=== PATIENT | female | born 1960 | race Caucasian/White ===

== ENCOUNTER 2021-08-17 20:33 | Inpatient (IN) | payer OTHER ==
[2021-08-17 21:29] LABS: #Eosinphils 0.1 thou/uL (0.0-0.7); #Lymphocytes 1.4 thou/uL (1.20-3.40); #Monocytes 0.5 thou/uL (0.11-0.59); #Neutrophils 4.6 thou/uL (1.40-6.50); %Basophils 0.2 % (0.0-1.0); %Eosinophils 0.8 % (0.0-10.0); %Lymphocytes 20.5 % (21.0-51.0); %Monocytes 8.2 % (0.0-10.0); %Neutrophils 70.3 % (42.0-75.0); Hemoglobin 12.9 g/dL (12.0-16.0); Mean Corpuscular HGB CONC 29.6 g/dL (32.0-36.0); Mean Corpuscular Hemoglobin 27.1 pg (27.0-31.0); Mean Corpuscular Volume 91.8 fL (78.0-98.0); Platelet Count 197 thou/uL (130-400); Red Blood Cell (RBC) Count 4.74 mill/uL (4.20-5.40); White Blood Cell (WBC) Count 6.6 thou/uL (4.8-10.8)
[2021-08-17 21:43] LABS: Bacteria/HPF None Seen HPF (None Seen); Bilirubin Negative (Negative); Blood, Urine Negative (Negative); Clarity Clear (Clear); Glucose, Urine (Dipstick) Normal (Negative); Ketone, Urine Negative (Negative); Leukocyte Negative Leu/uL (Negative); Nitrite Negative (Negative); Protein, Urine (Dipstick) 100 mg/dL (Neg-Trace); RBC/HPF 0-3 HPF (0-3); Specific Gravity, Urine 1.023 (1.002-1.036); Squamous Epithelial 0-3 HPF (0-3); Urobilinogen Normal mg/dL (Less than 2); WBC/HPF 0-3 HPF (0-3); pH, Urine 7.5 (5.0-9.0)
[2021-08-17 21:49] LABS: ALT (SGPT) 8 U/L (8-55); AST (SGOT) 13 U/L (5-34); Albumin 4.1 g/dL (3.5-5.0); Alkaline Phosphatase 90 U/L (40-110); Anion Gap 24 mmol/L (10-20); BUN (Urea Nitrogen) 13 mg/dL (9.8-20.1); Bilirubin, Total 1.6 mg/dL (0.2-1.2); Calc. Creatinine Clearance 0 mL/min (70-130); Calcium 9.9 mg/dL (7.8-10.44); Carbon Dioxide 20 mmol/L (22-29); Chloride 101 mmol/L (98-107); Globulin 3.5 g/dL (2.4-3.5); Glucose 215 mg/dL (70-105); Potassium 4.5 mmol/L (3.5-5.1); Protein, Total 7.6 g/dL (6.0-8.3); Sodium 140 mmol/L (136-145)
[2021-08-17] MEDS ORDERED: Azithromycin 500 MG VIAL ONE (22:09)
[2021-08-17 22:13] LABS: Actual Bicarbonate (HCO3a) 29.4 mEq/L (22-28); CO2 Tension 47.4 mmHg (35.0-45.0); Calcium, Ionized (arterial) 1.16 mmol/L (1.12-1.30); O2 Tension (PaO2), arterial 86.3 mmHg (80.0-100.0); Potassium - ABG Lab 4.27 mmol/L (3.70-5.30); pH, Arterial 7.41 (7.35-7.45)
[2021-08-17 22:27] LABS: SARS-CoV-2 NAA Rapid Test Not Detected (NotDetected)
[2021-08-17] MEDS ORDERED: Morphine 4 MG/ML VIAL ONE (22:34)
[2021-08-17] MEDS ORDERED: Ondansetron PF 4 MG/2 ML Vial ONE (22:37)
[2021-08-17] MEDS ORDERED: Acetaminophen 650 MG Suppository PR PRN (22:38)
[2021-08-17] MEDS ORDERED: Dextrose 5% in Water 1,000 ML IV PRN (22:38)
[2021-08-17] MEDS ORDERED: Dextrose 50% Abboject 50 ML SYRINGE SLOW IVP PRN (22:38)
[2021-08-17] MEDS ORDERED: Furosemide 40 MG/4 ML VIAL SLOW IVP SCH (23:30)
[2021-08-18] MEDS: Nystatin Powder 15 GM BOT TOP PRN (01:21)
[2021-08-18] MEDS ORDERED: Morphine 4 MG/ML VIAL SLOW IVP SCH (01:30)
[2021-08-18 01:37] LABS: Lactic Acid 2.9 mmol/L (0.5-2.2)
[2021-08-18] MEDS ORDERED: tiZANidine HCl 4 MG TAB PO SCH ×2 (02:00→18:30)
[2021-08-18] MEDS ORDERED: Benzonatate 100 MG CAP PO PRN (02:13)
[2021-08-18] MEDS ORDERED: Ondansetron ODT 4 MG TAB PO PRN (02:17)
[2021-08-18] MEDS ORDERED: Albuterol Sulfate 2.5 mg/3 ml Neb NEB PRN (02:51)
[2021-08-18] MEDS ORDERED: Docusate 100 MG CAP PO PRN (02:51)
[2021-08-18] MEDS ORDERED: Non-Formulary Item 1 EACH (Albuterol Sulfate [Ventolin Hfa] 8 GM Hfa.Aer.Ad) INH PRN (02:51)
[2021-08-18] MEDS ORDERED: Promethazine 25 MG TAB PO PRN (02:58)
[2021-08-18 04:03] LABS: Band 3 % (5-11); Hemoglobin 11.4 g/dL (12.0-16.0); Hypochromia SLIGHT = 6-15 cells (100X) (0-5/hpf); Lymphocytes 17 % (21-51); MDiff Complete? YES; Mean Corpuscular Hemoglobin 27.8 pg (27.0-31.0); Mean Platelet Volume 9.1 fL (7.4-10.4); Monocytes 8 % (0-10); Neutrophil 72 % (42-75); Platelet Count 168 thou/uL (130-400); Platelet Morphology Comment Appears Adequate; White Blood Cell (WBC) Count 5.2 thou/uL (4.8-10.8)
[2021-08-18 04:18] LABS: ALT (SGPT) 9 U/L (8-55); AST (SGOT) 14 U/L (5-34); Albumin 3.4 g/dL (3.5-5.0); Alkaline Phosphatase 71 U/L (40-110); Anion Gap 15 mmol/L (10-20); BUN (Urea Nitrogen) 13 mg/dL (9.8-20.1); Bilirubin, Total 1.1 mg/dL (0.2-1.2); Calc. Creatinine Clearance 161 mL/min (70-130); Calcium 9.2 mg/dL (7.8-10.44); Carbon Dioxide 26 mmol/L (22-29); Chloride 102 mmol/L (98-107); Globulin 3.2 g/dL (2.4-3.5); Glucose 266 mg/dL (70-105); Potassium 4.4 mmol/L (3.5-5.1); Protein, Total 6.6 g/dL (6.0-8.3); Sodium 139 mmol/L (136-145)
[2021-08-18] MEDS: HumaLOG 300 UNITS/3 ML VIAL SC PRN ×3 (06:36→20:33)
[2021-08-18] MEDS: Arformoterol 15 MCG/2 ML NEB NEB SCH ×2 (08:34→19:09)
[2021-08-18] MEDS: Aripiprazole 10 MG TAB PO SCH (08:50)
[2021-08-18] MEDS: Fluticasone Propionate Nasal Spray 16 gm Bottle NASAL SCH (08:50)
[2021-08-18] MEDS: Ascorbic Acid 500 mg Chewable Tablet PO SCH (08:51)
[2021-08-18] MEDS: Ergocalciferol 1.25 MG(50,000 UNITS) CAP PO SCH (08:51)
[2021-08-18] MEDS: Loratadine 10 MG TAB PO SCH (08:51)
[2021-08-18] MEDS ORDERED: Torsemide 20 MG TAB PO SCH (09:00)
[2021-08-18] MEDS ORDERED: Digoxin 0.125 MG TAB PO SCH (09:00)
[2021-08-18] MEDS ORDERED: Enoxaparin Sodium 100 MG/ML SYRINGE SC SCH (09:00)
[2021-08-18] MEDS ORDERED: Loratadine 10 MG TAB PO SCH (09:00)
[2021-08-18] MEDS ORDERED: Betamethasone 0.1% Cream 15 GM TUBE TOP SCH (09:00)
[2021-08-18] MEDS ORDERED: Lantus 1000 UNITS/10 ML VIAL SC SCH (09:15)
[2021-08-18] MEDS: Mag-Al Plus 1200 MG/1200 MG/120 MG/30 ML UDCUP PO PRN ×2 (09:25→17:33)
[2021-08-18] MEDS: tiZANidine HCl 4 MG TAB PO PRN ×2 (09:25→17:37)
[2021-08-18] MEDS: Furosemide 40 MG/4 ML VIAL SLOW IVP SCH ×3 (09:26→20:33)
[2021-08-18] MEDS ORDERED: Betamethasone 0.1% Cream 15 GM TUBE TOP PRN (13:41)
[2021-08-18 14:11] LABS: Legionella Urinary Ag Negative (Negative)
[2021-08-18] MEDS: Acetaminophen 325 MG TAB PO PRN (18:12)
[2021-08-18] MEDS: Atorvastatin Calcium 20 MG TAB PO SCH (20:33)
[2021-08-19] MEDS: tiZANidine HCl 4 MG TAB PO PRN ×4 (01:21→23:32)
[2021-08-19 02:30] LABS: Actual Bicarbonate (HCO3a) 35.8 mEq/L (22-28); Base Excess (BEa) 8.4 mEq/L (-2.0 to +3.0); Calcium, Ionized (arterial) 1.16 mmol/L (1.12-1.30); Carboxyhemoglobin (COHb) 0.8 gm% (0.0-3.0); Hemoglobin (Hb) 11.7 g/dL (12.0-16.0); O2 Tension (PaO2), arterial 84.8 mmHg (80.0-100.0); pH, Arterial 7.36 (7.35-7.45)
[2021-08-19 02:33] LABS: CO2 Tension 64.2 mmHg (35.0-45.0); Puncture Site RRA
[2021-08-19] MEDS ORDERED: DOBUTamine 500 mg/250 ml 250 ML IVPB SCH (03:00)
[2021-08-19 03:52] LABS: Anion Gap 10 mmol/L (10-20); Anion Gap 11 mmol/L (10-20); BUN (Urea Nitrogen) 17 mg/dL (9.8-20.1); Calc. Creatinine Clearance 140 mL/min (70-130); Calc. Creatinine Clearance 142 mL/min (70-130); Calcium 8.8 mg/dL (7.8-10.44); Calcium 8.9 mg/dL (7.8-10.44); Carbon Dioxide 31 mmol/L (22-29); Carbon Dioxide 33 mmol/L (22-29); Chloride 94 mmol/L (98-107); Chloride 95 mmol/L (98-107); Glucose 315 mg/dL (70-105); Glucose 318 mg/dL (70-105); Magnesium 1.5 mg/dL (1.6-2.6); Phosphorus 3.5 mg/dL (2.3-4.7); Potassium 4.2 mmol/L (3.5-5.1); Sodium 132 mmol/L (136-145); Sodium 134 mmol/L (136-145)
[2021-08-19 04:38] LABS: Digoxin Less than 0.15 ng/mL (0.8-2.0)
[2021-08-19] MEDS: HumaLOG 300 UNITS/3 ML VIAL SC PRN ×4 (06:16→23:30)
[2021-08-19 06:56] LABS: Magnesium 1.5 mg/dL (1.6-2.6)
[2021-08-19] MEDS: Arformoterol 15 MCG/2 ML NEB NEB SCH ×2 (08:08→19:11)
[2021-08-19] MEDS: Acetaminophen 325 MG TAB PO PRN (08:59)
[2021-08-19] MEDS: Loratadine 10 MG TAB PO SCH (08:59)
[2021-08-19] MEDS: Ascorbic Acid 500 mg Chewable Tablet PO SCH (08:59)
[2021-08-19] MEDS: Aripiprazole 10 MG TAB PO SCH (08:59)
[2021-08-19] MEDS ORDERED: Apixaban 5 MG TAB PO SCH (09:00)
[2021-08-19] MEDS: Furosemide 40 MG/4 ML VIAL SLOW IVP SCH ×3 (09:00→20:13)
[2021-08-19] MEDS ORDERED: Lantus 1000 UNITS/10 ML VIAL SC SCH (09:00)
[2021-08-19] MEDS: Fluticasone Propionate Nasal Spray 16 gm Bottle NASAL SCH (09:00)
[2021-08-19] MEDS: Magnesium 2 GM/50 ML 2 GM in Premix Bag 1 BAG IVPB SCH ×3 (09:48→13:03)
[2021-08-19] MEDS ORDERED: HumaLOG 300 UNITS/3 ML VIAL SC PRN (09:53)
[2021-08-19] MEDS: HumaLOG 300 UNITS/3 ML VIAL SC SCH ×2 (12:05→16:34)
[2021-08-19] MEDS ORDERED: Ketorolac Tromethamine 30 MG/ML VIAL IVP SCH (13:45)
[2021-08-19] MEDS: Atorvastatin Calcium 20 MG TAB PO SCH (20:12)
[2021-08-20] MEDS: Acetaminophen 325 MG TAB PO PRN ×3 (02:30→18:32)
[2021-08-20 04:59] LABS: Anion Gap 14 mmol/L (10-20); BUN (Urea Nitrogen) 21 mg/dL (9.8-20.1); Calc. Creatinine Clearance 150 mL/min (70-130); Calcium 8.6 mg/dL (7.8-10.44); Carbon Dioxide 33 mmol/L (22-29); Chloride 93 mmol/L (98-107); Glucose 222 mg/dL (70-105); Potassium 4.6 mmol/L (3.5-5.1); Sodium 135 mmol/L (136-145)
[2021-08-20] MEDS: tiZANidine HCl 4 MG TAB PO PRN ×3 (06:06→20:10)
[2021-08-20] MEDS: HumaLOG 300 UNITS/3 ML VIAL SC PRN ×3 (06:07→16:30)
[2021-08-20] MEDS: Arformoterol 15 MCG/2 ML NEB NEB SCH ×2 (07:34→19:05)
[2021-08-20] MEDS: HumaLOG 300 UNITS/3 ML VIAL SC SCH (08:33)
[2021-08-20] MEDS ORDERED: Lantus 1000 UNITS/10 ML VIAL SC SCH (09:00)
[2021-08-20] MEDS: Fluticasone Propionate Nasal Spray 16 gm Bottle NASAL SCH (09:51)
[2021-08-20] MEDS: Aripiprazole 10 MG TAB PO SCH (09:56)
[2021-08-20] MEDS: Ascorbic Acid 500 mg Chewable Tablet PO SCH (09:56)
[2021-08-20] MEDS: Loratadine 10 MG TAB PO SCH (09:56)
[2021-08-20] MEDS: Furosemide 40 MG/4 ML VIAL SLOW IVP SCH ×3 (09:56→20:11)
[2021-08-20] MEDS: Ondansetron ODT 4 MG TAB PO PRN (11:38)
[2021-08-20 15:54] LABS: ANA Symphony (Qualitative) Negative (Negative); ANA Symphony (Quantitative) 0.4 Ratio (< 0.7 Negative)
[2021-08-20] MEDS: Atorvastatin Calcium 20 MG TAB PO SCH (20:11)
[2021-08-21 05:09] LABS: Anion Gap 15 mmol/L (10-20); BUN (Urea Nitrogen) 25 mg/dL (9.8-20.1); Calc. Creatinine Clearance 151 mL/min (70-130); Calcium 8.2 mg/dL (7.8-10.44); Carbon Dioxide 31 mmol/L (22-29); Chloride 93 mmol/L (98-107); Glucose 205 mg/dL (70-105); Magnesium 1.8 mg/dL (1.6-2.6); Sodium 135 mmol/L (136-145)
[2021-08-21 05:22] LABS: #Eosinphils 0.1 thou/uL (0.0-0.7); #Lymphocytes 0.6 thou/uL (1.20-3.40); #Monocytes 0.3 thou/uL (0.11-0.59); %Basophils 0.3 % (0.0-1.0); %Eosinophils 1.7 % (0.0-10.0); %Lymphocytes 14.3 % (21.0-51.0); %Monocytes 8.3 % (0.0-10.0); %Neutrophils 75.5 % (42.0-75.0); Hemoglobin 11.7 g/dL (12.0-16.0); Mean Corpuscular HGB CONC 29.9 g/dL (32.0-36.0); Mean Corpuscular Hemoglobin 27.2 pg (27.0-31.0); Mean Corpuscular Volume 90.8 fL (78.0-98.0); Mean Platelet Volume 9.4 fL (7.4-10.4); Platelet Count 131 thou/uL (130-400); RBC Distribution Width 14.1 % (11.5-14.5); Red Blood Cell (RBC) Count 4.29 mill/uL (4.20-5.40); White Blood Cell (WBC) Count 3.9 thou/uL (4.8-10.8)
[2021-08-21] MEDS: tiZANidine HCl 4 MG TAB PO PRN ×3 (05:28→21:44)
[2021-08-21] MEDS: Nystatin Powder 15 GM BOT TOP PRN (05:31)
[2021-08-21] MEDS: Arformoterol 15 MCG/2 ML NEB NEB SCH ×2 (08:04→18:41)
[2021-08-21] MEDS ORDERED: DOBUTamine 500 mg/250 ml 250 ML IVPB SCH (08:30)
[2021-08-21] MEDS ORDERED: Prevnar 13-Val Conj/PF 0.5 ML SYRINGE IM ONE (09:00)
[2021-08-21] MEDS ORDERED: Magnesium 2 GM/50 ML 2 GM in Premix Bag 1 BAG IVPB SCH (09:00)
[2021-08-21] MEDS ORDERED: FLU VACC QS2021-22(6MOS UP)/PF 60 MCG/0.5 ML SYRINGE IM ONE (09:00)
[2021-08-21] MEDS ORDERED: Lantus 1000 UNITS/10 ML VIAL SC SCH ×2 (09:00)
[2021-08-21] MEDS: Magnesium 2 GM/50 ML 2 GM in Premix Bag 1 BAG IVPB SCH ×2 (09:10→11:06)
[2021-08-21] MEDS: Ascorbic Acid 500 mg Chewable Tablet PO SCH (09:48)
[2021-08-21] MEDS: Aripiprazole 10 MG TAB PO SCH (09:48)
[2021-08-21] MEDS: Furosemide 40 MG/4 ML VIAL SLOW IVP SCH ×3 (09:49→21:02)
[2021-08-21] MEDS: Loratadine 10 MG TAB PO SCH (09:49)
[2021-08-21] MEDS: Fluticasone Propionate Nasal Spray 16 gm Bottle NASAL SCH (09:49)
[2021-08-21] MEDS ORDERED: HumaLOG 300 UNITS/3 ML VIAL SC SCH (17:00)
[2021-08-21] MEDS: Simethicone Chewable 80 MG TAB PO PRN (18:50)
[2021-08-21] MEDS: VANCOMYCIN 2 GRAM/400 ML BAG 2 GM in Premix Bag 1 BAG IVPB SCH (18:51)
[2021-08-21] MEDS: Atorvastatin Calcium 20 MG TAB PO SCH (21:02)
[2021-08-21] MEDS: Acetaminophen 325 MG TAB PO PRN (22:52)
[2021-08-21] MEDS ORDERED: Aripiprazole 10 MG TAB PO SCH (23:30)
[2021-08-22 03:56] LABS: Anion Gap 13 mmol/L (10-20); BUN (Urea Nitrogen) 27 mg/dL (9.8-20.1); Calc. Creatinine Clearance 141 mL/min (70-130); Calcium 8.6 mg/dL (7.8-10.44); Carbon Dioxide 32 mmol/L (22-29); Chloride 93 mmol/L (98-107); Glucose 208 mg/dL (70-105); Magnesium 1.7 mg/dL (1.6-2.6); Potassium 4.2 mmol/L (3.5-5.1); Sodium 134 mmol/L (136-145)
[2021-08-22] MEDS: tiZANidine HCl 4 MG TAB PO PRN ×3 (05:56→17:59)
[2021-08-22] MEDS: VANCOMYCIN 2 GRAM/400 ML BAG 2 GM in Premix Bag 1 BAG IVPB SCH ×2 (05:57→17:23)
[2021-08-22] MEDS: HumaLOG 300 UNITS/3 ML VIAL SC PRN ×3 (06:10→17:21)
[2021-08-22] MEDS ORDERED: Magnesium Sulfate 2 GM in Sodium Chloride 0.9% 100 ML IVPB SCH (06:30)
[2021-08-22] MEDS ORDERED: Magnesium 2 GM/50 ML 2 GM in Premix Bag 1 BAG IVPB SCH (07:00)
[2021-08-22] MEDS: Arformoterol 15 MCG/2 ML NEB NEB SCH ×2 (08:24→19:07)
[2021-08-22] MEDS ORDERED: Enoxaparin Sodium 100 MG/ML SYRINGE SC SCH (09:00)
[2021-08-22] MEDS ORDERED: tiZANidine HCl 4 MG TAB PO SCH (09:00)
[2021-08-22] MEDS: HumaLOG 300 UNITS/3 ML VIAL SC SCH ×3 (09:15→17:20)
[2021-08-22] MEDS: Lantus 1000 UNITS/10 ML VIAL SC SCH (09:16)
[2021-08-22] MEDS: Furosemide 40 MG/4 ML VIAL SLOW IVP SCH (09:17)
[2021-08-22] MEDS: Aripiprazole 10 MG TAB PO SCH (09:19)
[2021-08-22] MEDS: Ascorbic Acid 500 mg Chewable Tablet PO SCH (09:20)
[2021-08-22] MEDS: Loratadine 10 MG TAB PO SCH (09:20)
[2021-08-22] MEDS: Fluticasone Propionate Nasal Spray 16 gm Bottle NASAL SCH (09:20)
[2021-08-22] MEDS: Acetaminophen/Codeine 30-300mg Tablet PO PRN ×2 (11:12→23:52)
[2021-08-22 17:47] LABS: Vancomycin, Trough 22.2 ug/mL
[2021-08-22] MEDS: Ondansetron ODT 4 MG TAB PO PRN (17:59)
[2021-08-22] MEDS: Atorvastatin Calcium 20 MG TAB PO SCH (21:20)
[2021-08-22] MEDS ORDERED: hydrOXYzine 25 MG TAB PO PRN (21:42)
[2021-08-22] MEDS: Melatonin 3 MG TAB PO PRN (22:15)
[2021-08-23] MEDS: tiZANidine HCl 4 MG TAB PO PRN (03:30)
[2021-08-23 04:02] LABS: Anion Gap 16 mmol/L (10-20); BUN (Urea Nitrogen) 24 mg/dL (9.8-20.1); Calc. Creatinine Clearance 180 mL/min (70-130); Calcium 8.8 mg/dL (7.8-10.44); Carbon Dioxide 28 mmol/L (22-29); Chloride 96 mmol/L (98-107); Glucose 169 mg/dL (70-105); Potassium 3.9 mmol/L (3.5-5.1); Sodium 136 mmol/L (136-145)
[2021-08-23 04:27] LABS: Magnesium 1.8 mg/dL (1.6-2.6)
[2021-08-23] MEDS: Arformoterol 15 MCG/2 ML NEB NEB SCH ×2 (07:13→18:49)
[2021-08-23] MEDS: Vancomycin HCl 1.75 GM in Sodium Chloride 0.9% 500 ML IVPB SCH ×2 (07:18→17:03)
[2021-08-23] MEDS ORDERED: Magnesium 2 GM/50 ML 2 GM in Premix Bag 1 BAG IVPB SCH (08:30)
[2021-08-23] MEDS: Furosemide 40 MG/4 ML VIAL SLOW IVP SCH (08:38)
[2021-08-23] MEDS ORDERED: Lantus 1000 UNITS/10 ML VIAL SC SCH (09:00)
[2021-08-23] MEDS: Fluticasone Propionate Nasal Spray 16 gm Bottle NASAL SCH (10:51)
[2021-08-23] MEDS: Aripiprazole 10 MG TAB PO SCH (10:51)
[2021-08-23] MEDS: Ascorbic Acid 500 mg Chewable Tablet PO SCH (10:51)
[2021-08-23] MEDS: HumaLOG 300 UNITS/3 ML VIAL SC SCH ×3 (10:51→17:03)
[2021-08-23] MEDS: Loratadine 10 MG TAB PO SCH (10:52)
[2021-08-23] MEDS ORDERED: Fentanyl 250 MCG/5 ML VIAL ONE (13:29)
[2021-08-23] MEDS ORDERED: Dexamethasone 20 MG/5 ML VIAL ONE (13:48)
[2021-08-23] MEDS ORDERED: Esmolol 100 MG/10 ML VIAL ONE (13:48)
[2021-08-23] MEDS ORDERED: Ondansetron PF 4 MG/2 ML Vial ONE (13:48)
[2021-08-23] MEDS ORDERED: Succinylcholine 200 MG/10 ml SYRINGE FS ONE (13:48)
[2021-08-23] MEDS ORDERED: Atropine Sulfate 0.4 mg/1 ml Vial ONE (13:48)
[2021-08-23] MEDS ORDERED: ePHEDrine 50 MG/ML VIAL ONE (13:48)
[2021-08-23] MEDS ORDERED: Lidocaine 1% PF 5 ML VIAL ONE (13:48)
[2021-08-23] MEDS ORDERED: PHENYLEPHRINE-NS 100 MCG/ML 10 ML SYRINGE ONE (13:48)
[2021-08-23] MEDS ORDERED: PROPOFOL 200 MG/20 ML VIAL ONE (13:48)
[2021-08-23] MEDS ORDERED: Heparin 10,000 UNITS/ 10 ML VIAL ONE (14:20)
[2021-08-23] MEDS ORDERED: DOPamine 400 MG/D5W 250 ML 250 ML ONE (14:53)
[2021-08-23] MEDS: Acetaminophen/Codeine 30-300mg Tablet PO PRN (17:02)
[2021-08-23] MEDS ORDERED: Morphine 4 MG/ML VIAL SLOW IVP PRN ×3 (18:15→19:24)
[2021-08-23 20:24] LABS: #Monocytes 0.2 thou/uL (0.11-0.59); #Neutrophils 7.5 thou/uL (1.40-6.50); %Basophils 0.2 % (0.0-1.0); %Eosinophils 0.2 % (0.0-10.0); %Lymphocytes 11.1 % (21.0-51.0); %Monocytes 2.7 % (0.0-10.0); %Neutrophils 85.8 % (42.0-75.0); Hemoglobin 10.9 g/dL (12.0-16.0); Mean Corpuscular HGB CONC 29.5 g/dL (32.0-36.0); Mean Corpuscular Hemoglobin 26.9 pg (27.0-31.0); Mean Corpuscular Volume 91.2 fL (78.0-98.0); Mean Platelet Volume 9.3 fL (7.4-10.4); Platelet Count 177 thou/uL (130-400); RBC Distribution Width 13.9 % (11.5-14.5); Red Blood Cell (RBC) Count 4.07 mill/uL (4.20-5.40); White Blood Cell (WBC) Count 8.7 thou/uL (4.8-10.8)
[2021-08-23 21:08] LABS: Hypochromia SLIGHT = 6-15 cells (100X) (0-5/hpf); Lymphocytes 8 % (21-51); MDiff Complete? YES; Monocytes 6 % (0-10); Neutrophil 86 % (42-75); Platelet Morphology Comment Appears Adequate
[2021-08-23] MEDS: Atorvastatin Calcium 20 MG TAB PO SCH (21:08)
[2021-08-23] MEDS: Ondansetron PF 4 MG/2 ML Vial IVP PRN (21:08)
[2021-08-23] MEDS: Morphine 4 MG/ML VIAL SLOW IVP PRN (23:13)
[2021-08-24 04:43] LABS: #Lymphocytes 0.8 thou/uL (1.20-3.40); #Monocytes 0.9 thou/uL (0.11-0.59); #Neutrophils 9.1 thou/uL (1.40-6.50); %Eosinophils 0.2 % (0.0-10.0); %Lymphocytes 7.4 % (21.0-51.0); %Monocytes 8.4 % (0.0-10.0); %Neutrophils 83.9 % (42.0-75.0); Hemoglobin 10.3 g/dL (12.0-16.0); Mean Corpuscular HGB CONC 31.2 g/dL (32.0-36.0); Mean Corpuscular Hemoglobin 27.9 pg (27.0-31.0); Mean Corpuscular Volume 89.3 fL (78.0-98.0); Mean Platelet Volume 9.2 fL (7.4-10.4); Platelet Count 172 thou/uL (130-400); RBC Distribution Width 13.7 % (11.5-14.5); Red Blood Cell (RBC) Count 3.69 mill/uL (4.20-5.40); White Blood Cell (WBC) Count 10.8 thou/uL (4.8-10.8)
[2021-08-24 05:16] LABS: Anion Gap 15 mmol/L (10-20); BUN (Urea Nitrogen) 33 mg/dL (9.8-20.1); Calc. Creatinine Clearance 111 mL/min (70-130); Calcium 8.4 mg/dL (7.8-10.44); Carbon Dioxide 28 mmol/L (22-29); Chloride 94 mmol/L (98-107); Glucose 313 mg/dL (70-105); Magnesium 1.8 mg/dL (1.6-2.6); Sodium 133 mmol/L (136-145)
[2021-08-24] MEDS: HumaLOG 300 UNITS/3 ML VIAL SC PRN ×2 (07:38→17:27)
[2021-08-24] MEDS: Arformoterol 15 MCG/2 ML NEB NEB SCH ×2 (08:05→19:02)
[2021-08-24] MEDS: Morphine 4 MG/ML VIAL SLOW IVP PRN ×3 (08:43→21:53)
[2021-08-24] MEDS ORDERED: Lantus 1000 UNITS/10 ML VIAL SC SCH (08:45)
[2021-08-24] MEDS ORDERED: Magnesium 2 GM/50 ML 2 GM in Premix Bag 1 BAG IVPB SCH (08:45)
[2021-08-24] MEDS: Loratadine 10 MG TAB PO SCH (08:53)
[2021-08-24] MEDS: Aripiprazole 10 MG TAB PO SCH (08:53)
[2021-08-24] MEDS: Ascorbic Acid 500 mg Chewable Tablet PO SCH (08:53)
[2021-08-24] MEDS: Saccharomyces boulardii 250 MG CAP PO SCH (08:53)
[2021-08-24] MEDS: Metoprolol Tartrate 25 MG TAB PO SCH ×2 (08:54→21:41)
[2021-08-24] MEDS ORDERED: Metoprolol Tartrate 25 MG TAB PO SCH (09:00)
[2021-08-24] MEDS: Fluticasone Propionate Nasal Spray 16 gm Bottle NASAL SCH (09:06)
[2021-08-24] MEDS: HumaLOG 300 UNITS/3 ML VIAL SC SCH ×4 (09:08→17:27)
[2021-08-24 09:24] LABS: Hemoglobin 8.6 g/dL (12.0-16.0); Platelet Count 141 thou/uL (130-400)
[2021-08-24] MEDS ORDERED: Furosemide 40 MG/4 ML VIAL SLOW IVP SCH (10:30)
[2021-08-24] MEDS: Clindamycin 150 MG CAP PO SCH ×2 (11:06→16:57)
[2021-08-24 12:03] LABS: SARS-CoV-2 PCR by NAA Not Detected (NotDetected)
[2021-08-24] MEDS: Atorvastatin Calcium 20 MG TAB PO SCH (21:42)
[2021-08-24] MEDS: tiZANidine HCl 4 MG TAB PO PRN (21:53)
[2021-08-25] MEDS: HumaLOG 300 UNITS/3 ML VIAL SC PRN ×3 (00:07→11:21)
[2021-08-25] MEDS: Clindamycin 150 MG CAP PO SCH ×3 (00:51→17:36)
[2021-08-25 01:29] LABS: #Eosinphils 0.1 thou/uL (0.0-0.7); #Lymphocytes 1.1 thou/uL (1.20-3.40); #Neutrophils 6.3 thou/uL (1.40-6.50); %Basophils 0.3 % (0.0-1.0); %Eosinophils 0.6 % (0.0-10.0); %Lymphocytes 12.6 % (21.0-51.0); %Monocytes 11.9 % (0.0-10.0); %Neutrophils 74.6 % (42.0-75.0); Hemoglobin 8.2 g/dL (12.0-16.0); Mean Corpuscular HGB CONC 31.5 g/dL (32.0-36.0); Mean Corpuscular Hemoglobin 28.2 pg (27.0-31.0); Mean Corpuscular Volume 89.6 fL (78.0-98.0); Mean Platelet Volume 9.1 fL (7.4-10.4); Platelet Count 157 thou/uL (130-400); RBC Distribution Width 13.4 % (11.5-14.5); White Blood Cell (WBC) Count 8.5 thou/uL (4.8-10.8)
[2021-08-25] MEDS ORDERED: Lactated Ringer's 500 ML IV SCH ×2 (01:30→17:15)
[2021-08-25 02:53] LABS: Anion Gap 14 mmol/L (10-20); BUN (Urea Nitrogen) 39 mg/dL (9.8-20.1); Calc. Creatinine Clearance 108 mL/min (70-130); Calcium 8.2 mg/dL (7.8-10.44); Carbon Dioxide 28 mmol/L (22-29); Chloride 92 mmol/L (98-107); Glucose 253 mg/dL (70-105); Potassium 3.8 mmol/L (3.5-5.1); Sodium 130 mmol/L (136-145)
[2021-08-25 06:59] LABS: Hemoglobin 8.9 g/dL (12.0-16.0); Platelet Count 191 thou/uL (130-400)
[2021-08-25] MEDS: Arformoterol 15 MCG/2 ML NEB NEB SCH ×2 (08:16→18:59)
[2021-08-25 08:38] LABS: Magnesium 2.2 mg/dL (1.6-2.6)
[2021-08-25] MEDS: Saccharomyces boulardii 250 MG CAP PO SCH (08:41)
[2021-08-25] MEDS: Aripiprazole 10 MG TAB PO SCH (08:41)
[2021-08-25] MEDS: Ascorbic Acid 500 mg Chewable Tablet PO SCH (08:41)
[2021-08-25] MEDS: Metoprolol Tartrate 25 MG TAB PO SCH (08:41)
[2021-08-25] MEDS: Loratadine 10 MG TAB PO SCH (08:41)
[2021-08-25] MEDS: Ergocalciferol 1.25 MG(50,000 UNITS) CAP PO SCH (08:41)
[2021-08-25] MEDS: Fluticasone Propionate Nasal Spray 16 gm Bottle NASAL SCH (08:42)
[2021-08-25 08:47] LABS: Hemoglobin 9.3 g/dL (12.0-16.0); Platelet Count 189 thou/uL (130-400)
[2021-08-25] MEDS: Morphine 4 MG/ML VIAL SLOW IVP PRN (08:52)
[2021-08-25] MEDS: Mag-Al Plus 1200 MG/1200 MG/120 MG/30 ML UDCUP PO PRN (08:54)
[2021-08-25] MEDS: Lantus 1000 UNITS/10 ML VIAL SC SCH (08:58)
[2021-08-25] MEDS ORDERED: Torsemide 20 MG TAB PO SCH (10:00)
[2021-08-25] MEDS: HumaLOG 300 UNITS/3 ML VIAL SC SCH ×2 (11:19→17:37)
[2021-08-25] MEDS: tiZANidine HCl 4 MG TAB PO PRN (12:20)
[2021-08-25 20:02] LABS: Hemoglobin 9.3 g/dL (12.0-16.0); Platelet Count 178 thou/uL (130-400)
[2021-08-25] MEDS ORDERED: Metoprolol Tartrate 25 MG TAB PO SCH (21:00)
[2021-08-25] MEDS ORDERED: Acetaminophen/Codeine 30-300mg Tablet PO SCH (21:15)
[2021-08-25] MEDS: Atorvastatin Calcium 20 MG TAB PO SCH (21:40)
[2021-08-25] MEDS: Nystatin Powder 15 GM BOT TOP PRN (22:36)
[2021-08-26] MEDS: Clindamycin 150 MG CAP PO SCH ×3 (00:41→16:29)
[2021-08-26] MEDS: Mag-Al Plus 1200 MG/1200 MG/120 MG/30 ML UDCUP PO PRN (00:45)
[2021-08-26] MEDS: Ondansetron PF 4 MG/2 ML Vial IVP PRN ×2 (00:46→08:26)
[2021-08-26] MEDS: Morphine 4 MG/ML VIAL SLOW IVP PRN ×5 (01:59→21:19)
[2021-08-26 03:50] LABS: #Basophils 0.1 thou/uL (0.0-0.2); #Eosinphils 0.3 thou/uL (0.0-0.7); #Lymphocytes 1.6 thou/uL (1.20-3.40); #Monocytes 0.9 thou/uL (0.11-0.59); #Neutrophils 9.2 thou/uL (1.40-6.50); %Basophils 0.7 % (0.0-1.0); %Eosinophils 2.5 % (0.0-10.0); %Lymphocytes 13.4 % (21.0-51.0); %Monocytes 7.1 % (0.0-10.0); %Neutrophils 76.3 % (42.0-75.0); Hemoglobin 9.2 g/dL (12.0-16.0); Mean Corpuscular HGB CONC 31.4 g/dL (32.0-36.0); Mean Corpuscular Hemoglobin 27.8 pg (27.0-31.0); Mean Corpuscular Volume 88.5 fL (78.0-98.0); Platelet Count 207 thou/uL (130-400); RBC Distribution Width 13.7 % (11.5-14.5); Red Blood Cell (RBC) Count 3.31 mill/uL (4.20-5.40); White Blood Cell (WBC) Count 12.1 thou/uL (4.8-10.8)
[2021-08-26 04:12] LABS: Anion Gap 14 mmol/L (10-20); BUN (Urea Nitrogen) 47 mg/dL (9.8-20.1); Calc. Creatinine Clearance 110 mL/min (70-130); Calcium 8.4 mg/dL (7.8-10.44); Carbon Dioxide 28 mmol/L (22-29); Chloride 91 mmol/L (98-107); Glucose 230 mg/dL (70-105); Potassium 4.2 mmol/L (3.5-5.1); Sodium 129 mmol/L (136-145)
[2021-08-26] MEDS: HumaLOG 300 UNITS/3 ML VIAL SC PRN ×2 (06:07→20:50)
[2021-08-26] MEDS: Arformoterol 15 MCG/2 ML NEB NEB SCH ×2 (07:20→19:17)
[2021-08-26] MEDS: Polyethylene Glycol 3350 17 GM Packet PO SCH (08:14)
[2021-08-26] MEDS: Metoprolol Tartrate 25 MG TAB PO SCH (08:15)
[2021-08-26] MEDS: Ascorbic Acid 500 mg Chewable Tablet PO SCH (08:15)
[2021-08-26] MEDS: Aripiprazole 10 MG TAB PO SCH (08:15)
[2021-08-26] MEDS: Torsemide 20 MG TAB PO SCH ×2 (08:15→20:50)
[2021-08-26] MEDS: Saccharomyces boulardii 250 MG CAP PO SCH (08:15)
[2021-08-26] MEDS: Loratadine 10 MG TAB PO SCH (08:16)
[2021-08-26] MEDS: HumaLOG 300 UNITS/3 ML VIAL SC SCH ×3 (08:17→16:30)
[2021-08-26] MEDS: Lantus 1000 UNITS/10 ML VIAL SC SCH (08:17)
[2021-08-26] MEDS: Fluticasone Propionate Nasal Spray 16 gm Bottle NASAL SCH (08:18)
[2021-08-26] MEDS ORDERED: Torsemide 20 MG TAB PO SCH (09:00)
[2021-08-26 10:28] LABS: Creatinine, Urine Less than 20.00 mg/dL (47-110); Urea Nitrogen, Random Urine 315 mg/dl
[2021-08-26] MEDS: Atorvastatin Calcium 20 MG TAB PO SCH (20:50)
[2021-08-26] MEDS: Diclofenac 1% 100 GM GEL TP PRN (21:24)
[2021-08-27] MEDS: Metoprolol Tartrate 25 MG TAB PO SCH ×3 (00:32→20:44)
[2021-08-27] MEDS: Mag-Al Plus 1200 MG/1200 MG/120 MG/30 ML UDCUP PO PRN (00:34)
[2021-08-27] MEDS: Clindamycin 150 MG CAP PO SCH ×2 (00:34→08:23)
[2021-08-27] MEDS: Ondansetron PF 4 MG/2 ML Vial IVP PRN ×2 (00:34→08:22)
[2021-08-27 05:07] LABS: Anion Gap 18 mmol/L (10-20); BUN (Urea Nitrogen) 35 mg/dL (9.8-20.1); Calc. Creatinine Clearance 138 mL/min (70-130); Calcium 8.5 mg/dL (7.8-10.44); Carbon Dioxide 26 mmol/L (22-29); Chloride 97 mmol/L (98-107); Glucose 204 mg/dL (70-105); Potassium 4.5 mmol/L (3.5-5.1); Sodium 136 mmol/L (136-145)
[2021-08-27] MEDS: Morphine 4 MG/ML VIAL SLOW IVP PRN ×3 (06:23→21:30)
[2021-08-27] MEDS: HumaLOG 300 UNITS/3 ML VIAL SC PRN ×2 (06:24→17:16)
[2021-08-27] MEDS: Diclofenac 1% 100 GM GEL TP PRN (06:27)
[2021-08-27] MEDS: Arformoterol 15 MCG/2 ML NEB NEB SCH ×2 (07:24→18:59)
[2021-08-27 07:32] LABS: #Eosinphils 0.5 thou/uL (0.0-0.7); #Lymphocytes 1.7 thou/uL (1.20-3.40); #Neutrophils 7.2 thou/uL (1.40-6.50); %Basophils 0.3 % (0.0-1.0); %Eosinophils 4.5 % (0.0-10.0); %Lymphocytes 16.6 % (21.0-51.0); %Monocytes 9.4 % (0.0-10.0); %Neutrophils 69.3 % (42.0-75.0); Hemoglobin 9.1 g/dL (12.0-16.0); Mean Corpuscular HGB CONC 31.3 g/dL (32.0-36.0); Mean Corpuscular Hemoglobin 28.4 pg (27.0-31.0); Mean Corpuscular Volume 90.7 fL (78.0-98.0); Mean Platelet Volume 8.3 fL (7.4-10.4); Platelet Count 217 thou/uL (130-400); Red Blood Cell (RBC) Count 3.19 mill/uL (4.20-5.40); White Blood Cell (WBC) Count 10.4 thou/uL (4.8-10.8)
[2021-08-27] MEDS: Aripiprazole 10 MG TAB PO SCH (08:21)
[2021-08-27] MEDS: Loratadine 10 MG TAB PO SCH (08:21)
[2021-08-27] MEDS: Torsemide 20 MG TAB PO SCH ×2 (08:22→20:44)
[2021-08-27] MEDS: Saccharomyces boulardii 250 MG CAP PO SCH (08:22)
[2021-08-27] MEDS: HumaLOG 300 UNITS/3 ML VIAL SC SCH ×3 (08:22→17:15)
[2021-08-27] MEDS: Polyethylene Glycol 3350 17 GM Packet PO SCH (08:22)
[2021-08-27] MEDS: Ascorbic Acid 500 mg Chewable Tablet PO SCH (08:22)
[2021-08-27] MEDS: Lantus 1000 UNITS/10 ML VIAL SC SCH (08:22)
[2021-08-27] MEDS: Fluticasone Propionate Nasal Spray 16 gm Bottle NASAL SCH (08:23)
[2021-08-27] MEDS: Atorvastatin Calcium 20 MG TAB PO SCH (20:44)
[2021-08-27] MEDS: Enoxaparin Sodium 40 MG/0.4 ML SYRINGE SC SCH (20:44)
[2021-08-28] MEDS: Acetaminophen/Codeine 30-300mg Tablet PO PRN ×2 (04:06→18:36)
[2021-08-28 04:08] LABS: Anion Gap 13 mmol/L (10-20); BUN (Urea Nitrogen) 33 mg/dL (9.8-20.1); Calc. Creatinine Clearance 146 mL/min (70-130); Calcium 8.5 mg/dL (7.8-10.44); Carbon Dioxide 33 mmol/L (22-29); Chloride 96 mmol/L (98-107); Glucose 202 mg/dL (70-105); Potassium 4.2 mmol/L (3.5-5.1); Sodium 138 mmol/L (136-145)
[2021-08-28 06:34] LABS: #Eosinphils 0.4 thou/uL (0.0-0.7); #Lymphocytes 1.4 thou/uL (1.20-3.40); #Monocytes 0.7 thou/uL (0.11-0.59); #Neutrophils 6.1 thou/uL (1.40-6.50); %Basophils 0.2 % (0.0-1.0); %Eosinophils 4.7 % (0.0-10.0); %Lymphocytes 16.3 % (21.0-51.0); %Monocytes 8.3 % (0.0-10.0); %Neutrophils 70.5 % (42.0-75.0); Hemoglobin 8.6 g/dL (12.0-16.0); Mean Corpuscular HGB CONC 31.4 g/dL (32.0-36.0); Mean Corpuscular Hemoglobin 28.9 pg (27.0-31.0); Mean Corpuscular Volume 92.1 fL (78.0-98.0); Mean Platelet Volume 8.4 fL (7.4-10.4); Platelet Count 217 thou/uL (130-400); RBC Distribution Width 14.5 % (11.5-14.5); Red Blood Cell (RBC) Count 2.98 mill/uL (4.20-5.40); White Blood Cell (WBC) Count 8.7 thou/uL (4.8-10.8)
[2021-08-28] MEDS: Arformoterol 15 MCG/2 ML NEB NEB SCH ×2 (07:06→19:08)
[2021-08-28] MEDS: HumaLOG 300 UNITS/3 ML VIAL SC PRN (07:20)
[2021-08-28] MEDS: Aripiprazole 10 MG TAB PO SCH (07:46)
[2021-08-28] MEDS: Ascorbic Acid 500 mg Chewable Tablet PO SCH (07:46)
[2021-08-28] MEDS: Metoprolol Tartrate 25 MG TAB PO SCH ×2 (07:46→20:26)
[2021-08-28] MEDS: Saccharomyces boulardii 250 MG CAP PO SCH (07:46)
[2021-08-28] MEDS: Loratadine 10 MG TAB PO SCH (07:47)
[2021-08-28] MEDS: Lantus 1000 UNITS/10 ML VIAL SC SCH (07:47)
[2021-08-28] MEDS: Torsemide 20 MG TAB PO SCH ×2 (07:47→20:26)
[2021-08-28] MEDS: HumaLOG 300 UNITS/3 ML VIAL SC SCH ×3 (07:47→18:06)
[2021-08-28] MEDS: Morphine 4 MG/ML VIAL SLOW IVP PRN ×3 (07:48→22:19)
[2021-08-28] MEDS: Polyethylene Glycol 3350 17 GM Packet PO SCH (07:48)
[2021-08-28] MEDS: Fluticasone Propionate Nasal Spray 16 gm Bottle NASAL SCH (07:49)
[2021-08-28 12:17] VITALS: BMI 60.4
[2021-08-28] MEDS: Enoxaparin Sodium 40 MG/0.4 ML SYRINGE SC SCH (20:26)
[2021-08-28] MEDS: Atorvastatin Calcium 20 MG TAB PO SCH (20:26)
[2021-08-29] MEDS: HumaLOG 300 UNITS/3 ML VIAL SC PRN ×2 (06:30→11:03)
[2021-08-29] MEDS: Morphine 4 MG/ML VIAL SLOW IVP PRN (06:31)
[2021-08-29 07:11] LABS: #Eosinphils 0.3 thou/uL (0.0-0.7); #Lymphocytes 1.7 thou/uL (1.20-3.40); #Monocytes 0.7 thou/uL (0.11-0.59); #Neutrophils 6.5 thou/uL (1.40-6.50); %Eosinophils 3.4 % (0.0-10.0); %Lymphocytes 18.3 % (21.0-51.0); %Monocytes 7.3 % (0.0-10.0); Hemoglobin 9.2 g/dL (12.0-16.0); Mean Corpuscular HGB CONC 30.9 g/dL (32.0-36.0); Mean Corpuscular Hemoglobin 28.2 pg (27.0-31.0); Mean Corpuscular Volume 91.5 fL (78.0-98.0); Platelet Count 237 thou/uL (130-400); RBC Distribution Width 15.1 % (11.5-14.5); Red Blood Cell (RBC) Count 3.27 mill/uL (4.20-5.40); White Blood Cell (WBC) Count 9.1 thou/uL (4.8-10.8)
[2021-08-29] MEDS: Arformoterol 15 MCG/2 ML NEB NEB SCH ×2 (07:19→18:21)
[2021-08-29 07:26] LABS: Anion Gap 12 mmol/L (10-20); BUN (Urea Nitrogen) 30 mg/dL (9.8-20.1); Calc. Creatinine Clearance 144 mL/min (70-130); Calcium 9.4 mg/dL (7.8-10.44); Carbon Dioxide 36 mmol/L (22-29); Chloride 96 mmol/L (98-107); Glucose 207 mg/dL (70-105); Potassium 4.4 mmol/L (3.5-5.1); Sodium 140 mmol/L (136-145)
[2021-08-29] MEDS: Acetaminophen/Codeine 30-300mg Tablet PO PRN ×4 (08:53→23:03)
[2021-08-29] MEDS: Polyethylene Glycol 3350 17 GM Packet PO SCH (08:53)
[2021-08-29] MEDS: Torsemide 20 MG TAB PO SCH ×2 (08:54→21:05)
[2021-08-29] MEDS: Ascorbic Acid 500 mg Chewable Tablet PO SCH (08:54)
[2021-08-29] MEDS: Aripiprazole 10 MG TAB PO SCH (08:54)
[2021-08-29] MEDS: Saccharomyces boulardii 250 MG CAP PO SCH (08:54)
[2021-08-29] MEDS: Metoprolol Tartrate 25 MG TAB PO SCH ×2 (08:55→23:05)
[2021-08-29] MEDS: Loratadine 10 MG TAB PO SCH (08:55)
[2021-08-29] MEDS: Fluticasone Propionate Nasal Spray 16 gm Bottle NASAL SCH (08:56)
[2021-08-29] MEDS: tiZANidine HCl 4 MG TAB PO SCH ×3 (08:56→21:05)
[2021-08-29] MEDS: Lantus 1000 UNITS/10 ML VIAL SC SCH (08:57)
[2021-08-29] MEDS: HumaLOG 300 UNITS/3 ML VIAL SC SCH ×3 (08:58→17:26)
[2021-08-29] MEDS ORDERED: tiZANidine HCl 4 MG TAB PO SCH (09:00)
[2021-08-29] MEDS: Simethicone Chewable 80 MG TAB PO PRN (14:03)
[2021-08-29] MEDS: Atorvastatin Calcium 20 MG TAB PO SCH (21:05)
[2021-08-29] MEDS: Enoxaparin Sodium 40 MG/0.4 ML SYRINGE SC SCH (21:07)
[2021-08-30 03:51] LABS: #Eosinphils 0.2 thou/uL (0.0-0.7); #Lymphocytes 1.6 thou/uL (1.20-3.40); #Monocytes 0.7 thou/uL (0.11-0.59); #Neutrophils 5.6 thou/uL (1.40-6.50); %Basophils 0.2 % (0.0-1.0); %Eosinophils 2.9 % (0.0-10.0); %Lymphocytes 19.3 % (21.0-51.0); %Monocytes 8.1 % (0.0-10.0); %Neutrophils 69.4 % (42.0-75.0); Hemoglobin 7.9 g/dL (12.0-16.0); Mean Corpuscular HGB CONC 31.4 g/dL (32.0-36.0); Mean Corpuscular Hemoglobin 28.6 pg (27.0-31.0); Mean Corpuscular Volume 91.2 fL (78.0-98.0); Mean Platelet Volume 8.2 fL (7.4-10.4); Platelet Count 200 thou/uL (130-400); RBC Distribution Width 14.8 % (11.5-14.5); Red Blood Cell (RBC) Count 2.76 mill/uL (4.20-5.40); White Blood Cell (WBC) Count 8.1 thou/uL (4.8-10.8)
[2021-08-30 04:04] LABS: Anion Gap 13 mmol/L (10-20); BUN (Urea Nitrogen) 31 mg/dL (9.8-20.1); Calc. Creatinine Clearance 156 mL/min (70-130); Calcium 8.9 mg/dL (7.8-10.44); Carbon Dioxide 34 mmol/L (22-29); Chloride 95 mmol/L (98-107); Glucose 185 mg/dL (70-105); Potassium 4.3 mmol/L (3.5-5.1); Sodium 138 mmol/L (136-145)
[2021-08-30] MEDS: Acetaminophen/Codeine 30-300mg Tablet PO PRN ×3 (05:51→18:54)
[2021-08-30] MEDS: HumaLOG 300 UNITS/3 ML VIAL SC PRN (05:59)
[2021-08-30] MEDS: Arformoterol 15 MCG/2 ML NEB NEB SCH ×2 (07:25→18:28)
[2021-08-30] MEDS: Aripiprazole 10 MG TAB PO SCH (08:36)
[2021-08-30] MEDS: Saccharomyces boulardii 250 MG CAP PO SCH (08:36)
[2021-08-30] MEDS: Ascorbic Acid 500 mg Chewable Tablet PO SCH (08:37)
[2021-08-30] MEDS: Metoprolol Tartrate 25 MG TAB PO SCH ×2 (08:37→21:14)
[2021-08-30] MEDS: Loratadine 10 MG TAB PO SCH (08:37)
[2021-08-30] MEDS: Torsemide 20 MG TAB PO SCH ×2 (08:37→21:17)
[2021-08-30] MEDS: HumaLOG 300 UNITS/3 ML VIAL SC SCH ×3 (08:38→17:08)
[2021-08-30] MEDS: Fluticasone Propionate Nasal Spray 16 gm Bottle NASAL SCH (08:38)
[2021-08-30] MEDS: Lantus 1000 UNITS/10 ML VIAL SC SCH (08:38)
[2021-08-30] MEDS ORDERED: Iopamidol-370 76% 500 ML 1 ML ONE (09:01)
[2021-08-30] MEDS: Acetaminophen 500 MG TAB PO PRN (10:34)
[2021-08-30] MEDS: Polyethylene Glycol 3350 17 GM Packet PO SCH (10:35)
[2021-08-30 15:12] LABS: Hemoglobin 8.7 g/dL (12.0-16.0)
[2021-08-30] MEDS: Enoxaparin Sodium 40 MG/0.4 ML SYRINGE SC SCH (21:14)
[2021-08-30] MEDS: Atorvastatin Calcium 20 MG TAB PO SCH (21:14)
[2021-08-30] MEDS: Melatonin 3 MG TAB PO PRN (21:17)
[2021-08-30 22:06] LABS: SARS-CoV-2 PCR by NAA Not Detected (NotDetected)
[2021-08-31 04:03] LABS: Mean Corpuscular HGB CONC 30.8 g/dL (32.0-36.0); Mean Corpuscular Hemoglobin 28.1 pg (27.0-31.0); Mean Corpuscular Volume 91.2 fL (78.0-98.0); Mean Platelet Volume 8.6 fL (7.4-10.4); Platelet Count 220 thou/uL (130-400); RBC Distribution Width 15.1 % (11.5-14.5); Red Blood Cell (RBC) Count 3.19 mill/uL (4.20-5.40); White Blood Cell (WBC) Count 8.3 thou/uL (4.8-10.8)
[2021-08-31 04:08] LABS: Anion Gap 13 mmol/L (10-20); BUN (Urea Nitrogen) 28 mg/dL (9.8-20.1); Calc. Creatinine Clearance 160 mL/min (70-130); Carbon Dioxide 32 mmol/L (22-29); Chloride 95 mmol/L (98-107); Glucose 191 mg/dL (70-105); Potassium 4.1 mmol/L (3.5-5.1); Sodium 136 mmol/L (136-145)
[2021-08-31 04:28] LABS: Band 4 % (5-11); Lymphocytes 13 % (21-51); MDiff Complete? YES; Monocytes 5 % (0-10); Myelocyte 2 % (0-0); Neutrophil 76 % (42-75)
[2021-08-31] MEDS: HumaLOG 300 UNITS/3 ML VIAL SC PRN ×2 (05:44→12:13)
[2021-08-31] MEDS: Acetaminophen/Codeine 30-300mg Tablet PO PRN ×3 (06:25→20:36)
[2021-08-31] MEDS: Arformoterol 15 MCG/2 ML NEB NEB SCH ×2 (06:59→18:29)
[2021-08-31] MEDS: HumaLOG 300 UNITS/3 ML VIAL SC SCH ×3 (08:57→17:36)
[2021-08-31] MEDS: Saccharomyces boulardii 250 MG CAP PO SCH (08:58)
[2021-08-31] MEDS: Ascorbic Acid 500 mg Chewable Tablet PO SCH (08:58)
[2021-08-31] MEDS: Lantus 1000 UNITS/10 ML VIAL SC SCH (08:58)
[2021-08-31] MEDS: Aripiprazole 10 MG TAB PO SCH (08:58)
[2021-08-31] MEDS: Loratadine 10 MG TAB PO SCH (08:58)
[2021-08-31] MEDS: Metoprolol Tartrate 25 MG TAB PO SCH ×2 (08:58→20:37)
[2021-08-31] MEDS: Torsemide 20 MG TAB PO SCH ×2 (08:58→20:39)
[2021-08-31] MEDS: Polyethylene Glycol 3350 17 GM Packet PO SCH (08:58)
[2021-08-31] MEDS: Fluticasone Propionate Nasal Spray 16 gm Bottle NASAL SCH (08:59)
[2021-08-31] MEDS: Melatonin 3 MG TAB PO PRN (20:36)
[2021-08-31] MEDS: Enoxaparin Sodium 40 MG/0.4 ML SYRINGE SC SCH (20:37)
[2021-08-31] MEDS: Atorvastatin Calcium 20 MG TAB PO SCH (20:37)
[2021-09-01] MEDS: HumaLOG 300 UNITS/3 ML VIAL SC PRN (06:06)
[2021-09-01] MEDS: Acetaminophen/Codeine 30-300mg Tablet PO PRN ×3 (06:07→22:05)
[2021-09-01] MEDS: Ascorbic Acid 500 mg Chewable Tablet PO SCH (07:35)
[2021-09-01] MEDS: Aripiprazole 10 MG TAB PO SCH (07:35)
[2021-09-01] MEDS: Loratadine 10 MG TAB PO SCH (07:35)
[2021-09-01] MEDS: Saccharomyces boulardii 250 MG CAP PO SCH (07:35)
[2021-09-01] MEDS: Torsemide 20 MG TAB PO SCH ×2 (07:35→22:03)
[2021-09-01] MEDS: Metoprolol Tartrate 25 MG TAB PO SCH ×2 (07:35→22:03)
[2021-09-01] MEDS: HumaLOG 300 UNITS/3 ML VIAL SC SCH ×3 (07:36→16:55)
[2021-09-01] MEDS: Lantus 1000 UNITS/10 ML VIAL SC SCH (07:36)
[2021-09-01] MEDS: Fluticasone Propionate Nasal Spray 16 gm Bottle NASAL SCH (07:37)
[2021-09-01] MEDS: Polyethylene Glycol 3350 17 GM Packet PO SCH (07:37)
[2021-09-01] MEDS: Arformoterol 15 MCG/2 ML NEB NEB SCH ×2 (07:54→19:06)
[2021-09-01] MEDS: Ergocalciferol 1.25 MG(50,000 UNITS) CAP PO SCH (09:16)
[2021-09-01] MEDS: Acetaminophen 500 MG TAB PO PRN (19:28)
[2021-09-01] MEDS: Melatonin 3 MG TAB PO PRN (22:03)
[2021-09-01] MEDS: Atorvastatin Calcium 20 MG TAB PO SCH (22:03)
[2021-09-01] MEDS: Enoxaparin Sodium 40 MG/0.4 ML SYRINGE SC SCH (22:04)
[2021-09-02 05:01] LABS: #Eosinphils 0.2 thou/uL (0.0-0.7); #Lymphocytes 1.3 thou/uL (1.20-3.40); #Monocytes 0.6 thou/uL (0.11-0.59); #Neutrophils 5.4 thou/uL (1.40-6.50); %Basophils 0.4 % (0.0-1.0); %Lymphocytes 17.5 % (21.0-51.0); %Monocytes 7.8 % (0.0-10.0); %Neutrophils 71.3 % (42.0-75.0); Mean Corpuscular HGB CONC 30.7 g/dL (32.0-36.0); Mean Corpuscular Hemoglobin 27.8 pg (27.0-31.0); Mean Corpuscular Volume 90.7 fL (78.0-98.0); Mean Platelet Volume 7.7 fL (7.4-10.4); Platelet Count 222 thou/uL (130-400); RBC Distribution Width 14.9 % (11.5-14.5); Red Blood Cell (RBC) Count 2.88 mill/uL (4.20-5.40); White Blood Cell (WBC) Count 7.6 thou/uL (4.8-10.8)
[2021-09-02 05:22] LABS: Anion Gap 10 mmol/L (10-20); BUN (Urea Nitrogen) 22 mg/dL (9.8-20.1); Calc. Creatinine Clearance 197 mL/min (70-130); Carbon Dioxide 32 mmol/L (22-29); Chloride 99 mmol/L (98-107); Glucose 178 mg/dL (70-105); Potassium 4.1 mmol/L (3.5-5.1); Sodium 137 mmol/L (136-145)
[2021-09-02] MEDS: HumaLOG 300 UNITS/3 ML VIAL SC PRN (05:42)
[2021-09-02] MEDS: Acetaminophen/Codeine 30-300mg Tablet PO PRN (06:25)
[2021-09-02] MEDS: Arformoterol 15 MCG/2 ML NEB NEB SCH (07:26)
[2021-09-02] MEDS: Ascorbic Acid 500 mg Chewable Tablet PO SCH (09:05)
[2021-09-02] MEDS: Torsemide 20 MG TAB PO SCH (09:05)
[2021-09-02] MEDS: Saccharomyces boulardii 250 MG CAP PO SCH (09:06)
[2021-09-02] MEDS: Aripiprazole 10 MG TAB PO SCH (09:06)
[2021-09-02] MEDS: Metoprolol Tartrate 25 MG TAB PO SCH (09:06)
[2021-09-02] MEDS: Loratadine 10 MG TAB PO SCH (09:06)
[2021-09-02] MEDS: HumaLOG 300 UNITS/3 ML VIAL SC SCH ×2 (09:07→11:40)
[2021-09-02] MEDS: Polyethylene Glycol 3350 17 GM Packet PO SCH (09:07)
[2021-09-02] MEDS: Lantus 1000 UNITS/10 ML VIAL SC SCH (09:07)
[2021-09-02] MEDS: Fluticasone Propionate Nasal Spray 16 gm Bottle NASAL SCH (09:07)
[2021-09-02] MEDS: Acetaminophen 500 MG TAB PO PRN (12:53)
[2021-09-02 15:39] VITALS: BP 132/76; TEMP 98
== END 2021-09-02 16:38 | disposition home or self-care (01) | DRG 853 ==
LOC: ERS 20:33 → IMCU/EMU 22:34 → CCU 08-19 03:09 → IMCU/EMU 08-20 17:18 → 2NO 09-01 17:40
PROVIDERS: ADMIT Family Medicine; ATTEND Family Medicine
PROC: 3E03329 Introduction of Other Anti-infective into Peripheral Vein, Percutaneous Approach (ICD-10-PCS; principal; 2021-08-17)
PROC: 5A09357 Assistance with Respiratory Ventilation, Less than 24 Consecutive Hours, Continuous Positive Airway Pressure (ICD-10-PCS; 2021-08-17)
PROC: 3E033XZ Introduction of Vasopressor into Peripheral Vein, Percutaneous Approach (ICD-10-PCS; 2021-08-19)
PROC: 02583ZZ Destruction of Conduction Mechanism, Percutaneous Approach (ICD-10-PCS; 2021-08-22)
PROC: 4A023FZ Measurement of Cardiac Rhythm, Percutaneous Approach (ICD-10-PCS; 2021-08-22)
PROC: 4A0234Z Measurement of Cardiac Electrical Activity, Percutaneous Approach (ICD-10-PCS; 2021-08-22)
PROC: 02K83ZZ Map Conduction Mechanism, Percutaneous Approach (ICD-10-PCS; 2021-08-22)
PROC: B24BZZ4 Ultrasonography of Heart with Aorta, Transesophageal (ICD-10-PCS; 2021-08-23)
PROC: 30233N1 Transfusion of Nonautologous Red Blood Cells into Peripheral Vein, Percutaneous Approach (ICD-10-PCS; 2021-08-24)
DX: A41.89 Other specified sepsis (principal); J12.9 Viral pneumonia, unspecified; Z20.822 Contact with and (suspected) exposure to COVID-19; Z23 Encounter for immunization; I50.33 Acute on chronic diastolic (congestive) heart failure; J96.21 Acute and chronic respiratory failure with hypoxia; E66.2 Morbid (severe) obesity with alveolar hypoventilation; I13.0 Hypertensive heart and chronic kidney disease with heart failure and stage 1 through stage 4 chronic kidney disease, or unspecified chronic kidney disease; Z68.44 Body mass index [BMI] 60.0-69.9, adult; I44.2 Atrioventricular block, complete; N17.9 Acute kidney failure, unspecified; L76.32 Postprocedural hematoma of skin and subcutaneous tissue following other procedure; I45.2 Bifascicular block; E87.4 Mixed disorder of acid-base balance; T80.1XXA Vascular complications following infusion, transfusion and therapeutic injection, initial encounter; I48.3 Typical atrial flutter; L30.4 Erythema intertrigo; I48.91 Unspecified atrial fibrillation; M79.605 Pain in left leg; M79.604 Pain in right leg; F39 Unspecified mood [affective] disorder; N18.31 Chronic kidney disease, stage 3a; E11.22 Type 2 diabetes mellitus with diabetic chronic kidney disease; K75.81 Nonalcoholic steatohepatitis (NASH); A08.4 Viral intestinal infection, unspecified; I27.81 Cor pulmonale (chronic); I49.5 Sick sinus syndrome; I27.22 Pulmonary hypertension due to left heart disease; I27.23 Pulmonary hypertension due to lung diseases and hypoxia; G25.81 Restless legs syndrome; I80.8 Phlebitis and thrombophlebitis of other sites; Y84.8 Other medical procedures as the cause of abnormal reaction of the patient, or of later complication, without mention of misadventure at the time of the procedure; Z59.00 Homelessness unspecified; Z88.1 Allergy status to other antibiotic agents; Z88.2 Allergy status to sulfonamides; Z79.899 Other long term (current) drug therapy; Z90.49 Acquired absence of other specified parts of digestive tract; Z82.49 Family history of ischemic heart disease and other diseases of the circulatory system; Z99.81 Dependence on supplemental oxygen
CPT/HCPCS: 0240U; 36415; 36416; 36430; 36600; 51702; 71045; 74174; 76936; 76999; 80048; 80053; 80162; 80202; 81003; 81015; 82570; 82805; 83605; 83735; 83880; 84100; 84145; 84484; 84540; 85007; 85025; 85027; 85652; 86038; 86140; 86225; 86850; 86900; 86901; 87040; 87077; 87086; 87149; 87186; 87899; 90471; 90670; 90686; 93005; 93010; 93306; 93312; 93613; 93623; 93653; 93662; 93970; 94640; 94760; 96365; 96375; C1730; C1732; C1776; G0008; G0009; J0456; J0461; J1100; J1162; J1250; J1265; J1644; J1650; J1652; J1815; J1885; J1940; J1956; J2270; J2405; J2704; J3010; J3370; J3475; J3490; J7030; J7120; P9016; Q0162; Q0169; Q9967; U0003; U0005

== ENCOUNTER 2022-02-11 20:12 | Emergency (ER) | payer OTHER ==
[2022-02-11 21:09] LABS: #Eosinphils 0.1 thou/uL (0.0-0.7); #Lymphocytes 0.6 thou/uL (1.20-3.40); #Monocytes 0.4 thou/uL (0.11-0.59); %Eosinophils 2.9 % (0.0-10.0); %Lymphocytes 14.4 % (21.0-51.0); %Monocytes 8.5 % (0.0-10.0); %Neutrophils 74.1 % (42.0-75.0); Hemoglobin 9.3 g/dL (12.0-16.0); Mean Corpuscular HGB CONC 31.1 g/dL (32.0-36.0); Mean Corpuscular Hemoglobin 29.4 pg (27.0-31.0); Mean Corpuscular Volume 94.7 fL (78.0-98.0); Platelet Count 122 thou/uL (130-400); RBC Distribution Width 14.9 % (11.5-14.5); Red Blood Cell (RBC) Count 3.14 mill/uL (4.20-5.40); White Blood Cell (WBC) Count 4.1 thou/uL (4.8-10.8)
[2022-02-11 21:26] LABS: ALT (SGPT) 8 U/L (8-55); AST (SGOT) 18 U/L (5-34); Albumin 3.3 g/dL (3.5-5.0); Alkaline Phosphatase 94 U/L (40-110); Anion Gap 11 mmol/L (10-20); BUN (Urea Nitrogen) 11 mg/dL (9.8-20.1); Bilirubin, Total 1.3 mg/dL (0.2-1.2); Calc. Creatinine Clearance 0 mL/min (70-130); Calcium 8.4 mg/dL (7.8-10.44); Carbon Dioxide 33 mmol/L (22-29); Chloride 102 mmol/L (98-107); Estimated GFR 83; Globulin 2.6 g/dL (2.4-3.5); Glucose 194 mg/dL (70-105); Potassium 4.2 mmol/L (3.5-5.1); Protein, Total 5.9 g/dL (6.0-8.3); Sodium 142 mmol/L (136-145)
[2022-02-11 23:32] LABS: Bacteria/HPF None Seen HPF (None Seen); Bilirubin Negative (Negative); Blood, Urine Negative (Negative); Clarity Clear (Clear); Glucose, Urine (Dipstick) Normal (Negative); Ketone, Urine Negative (Negative); Leukocyte 250 Leu/uL (Negative); Nitrite Negative (Negative); Protein, Urine (Dipstick) 10 mg/dL (Neg-Trace); RBC/HPF 0-3 HPF (0-3); Specific Gravity, Urine 1.022 (1.002-1.036); Squamous Epithelial 0-3 HPF (0-3); Urobilinogen Greater than 12 mg/dL (Less than 2)
== END 2022-02-12 00:10 | disposition home or self-care (01) ==
LOC: ERS 20:12
DX: L03.113 Cellulitis of right upper limb (principal); R53.1 Weakness; E66.01 Morbid (severe) obesity due to excess calories; I48.91 Unspecified atrial fibrillation; J44.9 Chronic obstructive pulmonary disease, unspecified; Z79.899 Other long term (current) drug therapy
CPT/HCPCS: 36415; 36416; 71045; 80053; 81003; 81015; 83880; 84484; 85025; 87086; 93005

== ENCOUNTER 2022-02-28 11:35 | Inpatient (IN) | payer OTHER ==
[2022-02-28 12:35] LABS: #Eosinphils 0.2 thou/uL (0.0-0.7); #Lymphocytes 0.7 thou/uL (1.20-3.40); #Monocytes 0.3 thou/uL (0.11-0.59); #Neutrophils 3.7 thou/uL (1.40-6.50); %Basophils 0.4 % (0.0-1.0); %Eosinophils 3.5 % (0.0-10.0); %Monocytes 6.9 % (0.0-10.0); %Neutrophils 75.2 % (42.0-75.0); Hemoglobin 10.4 g/dL (12.0-16.0); Mean Corpuscular HGB CONC 30.3 g/dL (32.0-36.0); Mean Corpuscular Hemoglobin 29.4 pg (27.0-31.0); Mean Corpuscular Volume 96.9 fL (78.0-98.0); Mean Platelet Volume 8.2 fL (7.4-10.4); Platelet Count 151 thou/uL (130-400); RBC Distribution Width 14.4 % (11.5-14.5); Red Blood Cell (RBC) Count 3.53 mill/uL (4.20-5.40); White Blood Cell (WBC) Count 4.9 thou/uL (4.8-10.8)
[2022-02-28 12:57] LABS: ALT (SGPT) 9 U/L (8-55); AST (SGOT) 18 U/L (5-34); Albumin 3.6 g/dL (3.5-5.0); Alkaline Phosphatase 98 U/L (40-110); Anion Gap 15 mmol/L (10-20); BUN (Urea Nitrogen) 17 mg/dL (9.8-20.1); Bilirubin, Total 1.2 mg/dL (0.2-1.2); Calc. Creatinine Clearance 0 mL/min (70-130); Calcium 8.6 mg/dL (7.8-10.44); Carbon Dioxide 30 mmol/L (22-29); Chloride 101 mmol/L (98-107); Estimated GFR 60; Globulin 2.9 g/dL (2.4-3.5); Glucose 127 mg/dL (70-105); Potassium 4.8 mmol/L (3.5-5.1); Protein, Total 6.5 g/dL (6.0-8.3); Sodium 141 mmol/L (136-145)
[2022-02-28 13:22] LABS: Bilirubin Negative (Negative); Blood, Urine 1+ (Negative); Clarity Turbid (Clear); Glucose, Urine (Dipstick) Normal (Negative); Ketone, Urine Negative (Negative); Leukocyte 500 Leu/uL (Negative); Nitrite Negative (Negative); Protein, Urine (Dipstick) 70 mg/dL (Neg-Trace); Specific Gravity, Urine 1.029 (1.002-1.036); Urobilinogen 3 mg/dL (Less than 2); WBC/HPF Greater than 50 HPF (0-3)
[2022-02-28 13:24] LABS: Bacteria/HPF 1+ HPF (None Seen)
[2022-02-28] MEDS ORDERED: Dextrose 5% in Water 1,000 ML IV PRN (16:02)
[2022-02-28] MEDS ORDERED: HumaLOG 300 UNITS/3 ML VIAL SC PRN ×2 (16:02)
[2022-02-28] MEDS ORDERED: Dextrose 50% Abboject 50 ML SYRINGE SLOW IVP PRN (16:02)
[2022-02-28] MEDS ORDERED: Furosemide 20 MG/2 ML VIAL ONE (16:19)
[2022-02-28] MEDS ORDERED: Nitrofurantoin Monohyd/M-Cryst 100 MG CAP PO SCH (16:45)
[2022-02-28 16:46] LABS: Magnesium 1.7 mg/dL (1.6-2.6)
[2022-02-28] MEDS ORDERED: Docusate 100 MG CAP PO PRN (17:33)
[2022-02-28 18:07] VITALS: BMI 68.7
[2022-02-28] MEDS: Arformoterol 15 MCG/2 ML NEB NEB SCH (19:28)
[2022-02-28] MEDS ORDERED: Furosemide 20 MG/2 ML VIAL SLOW IVP SCH (20:15)
[2022-02-28] MEDS: Enoxaparin Sodium 40 MG/0.4 ML SYRINGE SC SCH (22:15)
[2022-02-28] MEDS: Atorvastatin Calcium 20 MG TAB PO SCH (23:04)
[2022-02-28] MEDS: Metoprolol Tartrate 25 MG TAB PO SCH (23:06)
[2022-03-01 04:58] LABS: ALT (SGPT) 10 U/L (8-55); AST (SGOT) 14 U/L (5-34); Albumin 3.3 g/dL (3.5-5.0); Alkaline Phosphatase 91 U/L (40-110); Anion Gap 16 mmol/L (10-20); BUN (Urea Nitrogen) 19 mg/dL (9.8-20.1); Bilirubin, Total 1.3 mg/dL (0.2-1.2); Calc. Creatinine Clearance 158 mL/min (70-130); Calcium 8.5 mg/dL (7.8-10.44); Carbon Dioxide 29 mmol/L (22-29); Chloride 100 mmol/L (98-107); Estimated GFR 52; Globulin 2.8 g/dL (2.4-3.5); Glucose 149 mg/dL (70-105); Potassium 4.6 mmol/L (3.5-5.1); Protein, Total 6.1 g/dL (6.0-8.3); Sodium 140 mmol/L (136-145)
[2022-03-01 05:25] LABS: Band 5 % (5-11); Eosinophils 2 % (0-10); Hemoglobin 10.1 g/dL (12.0-16.0); Lymphocytes 3 % (21-51); MDiff Complete? YES; Mean Corpuscular HGB CONC 30.3 g/dL (32.0-36.0); Mean Corpuscular Hemoglobin 29.4 pg (27.0-31.0); Mean Corpuscular Volume 97.1 fL (78.0-98.0); Mean Platelet Volume 9.5 fL (7.4-10.4); Monocytes 3 % (0-10); Neutrophil 87 % (42-75); Platelet Count 139 thou/uL (130-400); RBC Distribution Width 14.7 % (11.5-14.5); Red Blood Cell (RBC) Count 3.43 mill/uL (4.20-5.40); White Blood Cell (WBC) Count 9.8 thou/uL (4.8-10.8)
[2022-03-01] MEDS: Furosemide 40 MG/4 ML VIAL SLOW IVP SCH ×2 (05:33→12:49)
[2022-03-01] MEDS: Arformoterol 15 MCG/2 ML NEB NEB SCH ×2 (07:35→19:20)
[2022-03-01] MEDS: Aripiprazole 10 MG TAB PO SCH (08:43)
[2022-03-01] MEDS: Metoprolol Tartrate 25 MG TAB PO SCH ×2 (08:44→21:02)
[2022-03-01] MEDS: Enoxaparin Sodium 40 MG/0.4 ML SYRINGE SC SCH ×2 (08:44→21:03)
[2022-03-01] MEDS: Aspirin 81 mg Enteric Coated Tablet PO SCH (08:44)
[2022-03-01] MEDS: HumaLOG 300 UNITS/3 ML VIAL SC SCH ×3 (08:45→18:10)
[2022-03-01] MEDS: cefTRIAXone\\ROCEPHIN 1 GM in Sodium Chloride 0.9% 100 ML IVPB SCH (08:45)
[2022-03-01] MEDS: Insulin Glargine 30 UNITS/0.3 ML VIAL SC SCH (08:46)
[2022-03-01] MEDS: Acetaminophen/Codeine 30-300mg Tablet PO PRN ×2 (12:48→21:03)
[2022-03-01] MEDS: Atorvastatin Calcium 20 MG TAB PO SCH (21:02)
[2022-03-02 04:22] LABS: #Eosinphils 0.4 thou/uL (0.0-0.7); #Lymphocytes 0.9 thou/uL (1.20-3.40); #Monocytes 0.5 thou/uL (0.11-0.59); #Neutrophils 3.2 thou/uL (1.40-6.50); %Basophils 0.2 % (0.0-1.0); %Eosinophils 8.6 % (0.0-10.0); %Lymphocytes 17.3 % (21.0-51.0); %Monocytes 9.8 % (0.0-10.0); %Neutrophils 64.2 % (42.0-75.0); Hemoglobin 8.7 g/dL (12.0-16.0); Mean Corpuscular Hemoglobin 30.1 pg (27.0-31.0); Platelet Count 104 thou/uL (130-400); RBC Distribution Width 14.6 % (11.5-14.5); Red Blood Cell (RBC) Count 2.89 mill/uL (4.20-5.40)
[2022-03-02 04:38] LABS: ALT (SGPT) 8 U/L (8-55); AST (SGOT) 12 U/L (5-34); Albumin 3.1 g/dL (3.5-5.0); Alkaline Phosphatase 78 U/L (40-110); Anion Gap 12 mmol/L (10-20); BUN (Urea Nitrogen) 26 mg/dL (9.8-20.1); Bilirubin, Total 1.1 mg/dL (0.2-1.2); Calc. Creatinine Clearance 160 mL/min (70-130); Calcium 8.5 mg/dL (7.8-10.44); Carbon Dioxide 30 mmol/L (22-29); Chloride 100 mmol/L (98-107); Estimated GFR 53; Globulin 2.8 g/dL (2.4-3.5); Glucose 136 mg/dL (70-105); Protein, Total 5.9 g/dL (6.0-8.3); Sodium 138 mmol/L (136-145)
[2022-03-02] MEDS: Furosemide 40 MG/4 ML VIAL SLOW IVP SCH ×2 (06:14→14:12)
[2022-03-02] MEDS: Acetaminophen/Codeine 30-300mg Tablet PO PRN (06:15)
[2022-03-02] MEDS: Arformoterol 15 MCG/2 ML NEB NEB SCH ×2 (07:38→19:10)
[2022-03-02] MEDS: HumaLOG 300 UNITS/3 ML VIAL SC SCH ×3 (09:25→17:00)
[2022-03-02] MEDS: Metoprolol Tartrate 25 MG TAB PO SCH ×2 (09:27→20:24)
[2022-03-02] MEDS: Aspirin 81 mg Enteric Coated Tablet PO SCH (09:27)
[2022-03-02] MEDS: Enoxaparin Sodium 40 MG/0.4 ML SYRINGE SC SCH ×2 (09:28→20:23)
[2022-03-02] MEDS: cefTRIAXone\\ROCEPHIN 1 GM in Sodium Chloride 0.9% 100 ML IVPB SCH (09:28)
[2022-03-02] MEDS: Insulin Glargine 30 UNITS/0.3 ML VIAL SC SCH (09:29)
[2022-03-02] MEDS: Aripiprazole 10 MG TAB PO SCH (13:48)
[2022-03-02] MEDS: Atorvastatin Calcium 20 MG TAB PO SCH (20:24)
[2022-03-03 04:48] LABS: #Eosinphils 0.4 thou/uL (0.0-0.7); #Lymphocytes 0.8 thou/uL (1.20-3.40); #Monocytes 0.4 thou/uL (0.11-0.59); #Neutrophils 2.8 thou/uL (1.40-6.50); %Eosinophils 8.4 % (0.0-10.0); %Lymphocytes 17.7 % (21.0-51.0); %Monocytes 9.2 % (0.0-10.0); %Neutrophils 64.7 % (42.0-75.0); Hemoglobin 9.1 g/dL (12.0-16.0); Mean Corpuscular HGB CONC 31.1 g/dL (32.0-36.0); Mean Corpuscular Hemoglobin 30.4 pg (27.0-31.0); Mean Corpuscular Volume 97.7 fL (78.0-98.0); Mean Platelet Volume 9.5 fL (7.4-10.4); Platelet Count 108 thou/uL (130-400); RBC Distribution Width 14.5 % (11.5-14.5); Red Blood Cell (RBC) Count 2.97 mill/uL (4.20-5.40); White Blood Cell (WBC) Count 4.3 thou/uL (4.8-10.8)
[2022-03-03 05:09] LABS: ALT (SGPT) Less than 7 U/L (8-55); AST (SGOT) 14 U/L (5-34); Albumin 3.2 g/dL (3.5-5.0); Alkaline Phosphatase 83 U/L (40-110); Anion Gap 15 mmol/L (10-20); BUN (Urea Nitrogen) 26 mg/dL (9.8-20.1); Bilirubin, Total 0.9 mg/dL (0.2-1.2); Calc. Creatinine Clearance 168 mL/min (70-130); Calcium 8.9 mg/dL (7.8-10.44); Carbon Dioxide 33 mmol/L (22-29); Chloride 100 mmol/L (98-107); Estimated GFR 56; Globulin 3.1 g/dL (2.4-3.5); Glucose 161 mg/dL (70-105); Potassium 4.5 mmol/L (3.5-5.1); Protein, Total 6.3 g/dL (6.0-8.3); Sodium 143 mmol/L (136-145)
[2022-03-03] MEDS: Furosemide 40 MG/4 ML VIAL SLOW IVP SCH ×2 (06:18→14:10)
[2022-03-03] MEDS: Arformoterol 15 MCG/2 ML NEB NEB SCH ×2 (07:21→18:43)
[2022-03-03] MEDS: Metoprolol Tartrate 25 MG TAB PO SCH ×2 (08:38→21:04)
[2022-03-03] MEDS: Aripiprazole 10 MG TAB PO SCH (08:40)
[2022-03-03] MEDS: Aspirin 81 mg Enteric Coated Tablet PO SCH (08:40)
[2022-03-03] MEDS: Insulin Glargine 30 UNITS/0.3 ML VIAL SC SCH (08:41)
[2022-03-03] MEDS: cefTRIAXone\\ROCEPHIN 1 GM in Sodium Chloride 0.9% 100 ML IVPB SCH (08:44)
[2022-03-03] MEDS: Enoxaparin Sodium 40 MG/0.4 ML SYRINGE SC SCH ×2 (08:48→21:04)
[2022-03-03] MEDS: HumaLOG 300 UNITS/3 ML VIAL SC SCH ×3 (08:49→18:33)
[2022-03-03] MEDS ORDERED: Moisturizing Cream (Eucerin) 113 GM JAR TOP PRN (13:23)
[2022-03-03] MEDS: Atorvastatin Calcium 20 MG TAB PO SCH (21:04)
[2022-03-03] MEDS ORDERED: Acetaminophen/Codeine 30-300mg Tablet PO SCH (23:15)
[2022-03-04 05:19] LABS: ALT (SGPT) Less than 7 U/L (8-55); AST (SGOT) 26 U/L (5-34); Alkaline Phosphatase 82 U/L (40-110); Anion Gap 15 mmol/L (10-20); BUN (Urea Nitrogen) 23 mg/dL (9.8-20.1); Bilirubin, Total 0.9 mg/dL (0.2-1.2); Calc. Creatinine Clearance 200 mL/min (70-130); Carbon Dioxide 34 mmol/L (22-29); Chloride 98 mmol/L (98-107); Estimated GFR 69; Globulin 3.3 g/dL (2.4-3.5); Glucose 101 mg/dL (70-105); Protein, Total 6.3 g/dL (6.0-8.3); Sodium 142 mmol/L (136-145)
[2022-03-04] MEDS: Furosemide 40 MG/4 ML VIAL SLOW IVP SCH (05:59)
[2022-03-04] MEDS: Arformoterol 15 MCG/2 ML NEB NEB SCH ×2 (07:05→19:04)
[2022-03-04] MEDS ORDERED: Ferrous Sulfate 325 MG TAB PO SCH (09:00)
[2022-03-04] MEDS: Enoxaparin Sodium 40 MG/0.4 ML SYRINGE SC SCH ×2 (09:51→20:53)
[2022-03-04] MEDS: Aspirin 81 mg Enteric Coated Tablet PO SCH (09:52)
[2022-03-04] MEDS: Metoprolol Tartrate 25 MG TAB PO SCH ×2 (09:53→20:51)
[2022-03-04] MEDS: Loratadine 10 MG TAB PO SCH (09:53)
[2022-03-04] MEDS: HumaLOG 300 UNITS/3 ML VIAL SC SCH ×3 (09:59→17:13)
[2022-03-04] MEDS: Aripiprazole 10 MG TAB PO SCH (09:59)
[2022-03-04] MEDS: Insulin Glargine 30 UNITS/0.3 ML VIAL SC SCH (10:00)
[2022-03-04] MEDS: Ferrous Sulfate 325 MG TAB PO SCH (17:13)
[2022-03-04] MEDS: Acetaminophen/Codeine 30-300mg Tablet PO PRN (20:51)
[2022-03-04] MEDS: Atorvastatin Calcium 20 MG TAB PO SCH (20:51)
[2022-03-04] MEDS ORDERED: Simethicone Chewable 80 MG TAB PO PRN (23:11)
[2022-03-05 05:18] LABS: #Eosinphils 0.3 thou/uL (0.0-0.7); #Lymphocytes 1.1 thou/uL (1.20-3.40); #Monocytes 0.5 thou/uL (0.11-0.59); #Neutrophils 2.2 thou/uL (1.40-6.50); %Basophils 1.2 % (0.0-1.0); %Eosinophils 7.8 % (0.0-10.0); %Lymphocytes 25.5 % (21.0-51.0); %Monocytes 11.9 % (0.0-10.0); %Neutrophils 53.6 % (42.0-75.0); Hemoglobin 9.7 g/dL (12.0-16.0); Mean Corpuscular HGB CONC 30.4 g/dL (32.0-36.0); Mean Corpuscular Hemoglobin 29.8 pg (27.0-31.0); Mean Corpuscular Volume 98.1 fL (78.0-98.0); Mean Platelet Volume 9.7 fL (7.4-10.4); Platelet Count 127 thou/uL (130-400); Red Blood Cell (RBC) Count 3.25 mill/uL (4.20-5.40); White Blood Cell (WBC) Count 4.1 thou/uL (4.8-10.8)
[2022-03-05 05:35] LABS: ALT (SGPT) 10 U/L (8-55); AST (SGOT) 17 U/L (5-34); Albumin 3.1 g/dL (3.5-5.0); Alkaline Phosphatase 98 U/L (40-110); Anion Gap 15 mmol/L (10-20); BUN (Urea Nitrogen) 23 mg/dL (9.8-20.1); Bilirubin, Total 0.9 mg/dL (0.2-1.2); Calc. Creatinine Clearance 204 mL/min (70-130); Calcium 9.3 mg/dL (7.8-10.44); Carbon Dioxide 37 mmol/L (22-29); Chloride 96 mmol/L (98-107); Estimated GFR 71; Glucose 130 mg/dL (70-105); Potassium 4.5 mmol/L (3.5-5.1); Protein, Total 6.1 g/dL (6.0-8.3); Sodium 143 mmol/L (136-145)
[2022-03-05] MEDS: Arformoterol 15 MCG/2 ML NEB NEB SCH ×2 (06:52→18:45)
[2022-03-05] MEDS ORDERED: Cetirizine HCl 10 MG TAB PO SCH (09:00)
[2022-03-05] MEDS: Ferrous Sulfate 325 MG TAB PO SCH ×2 (09:44→17:29)
[2022-03-05] MEDS: Metoprolol Tartrate 25 MG TAB PO SCH (09:45)
[2022-03-05] MEDS: Aripiprazole 10 MG TAB PO SCH (09:45)
[2022-03-05] MEDS: HumaLOG 300 UNITS/3 ML VIAL SC SCH ×3 (09:46→17:29)
[2022-03-05] MEDS: Aspirin 81 mg Enteric Coated Tablet PO SCH (09:46)
[2022-03-05] MEDS: Loratadine 10 MG TAB PO SCH ×2 (09:46→09:48)
[2022-03-05] MEDS: Insulin Glargine 30 UNITS/0.3 ML VIAL SC SCH (09:47)
[2022-03-05] MEDS: Enoxaparin Sodium 40 MG/0.4 ML SYRINGE SC SCH ×2 (09:48→20:36)
[2022-03-05] MEDS ORDERED: Sodium Chloride 0.65% Nasal 44 ML BOT EA NARE PRN (10:56)
[2022-03-05] MEDS ORDERED: Torsemide 20 MG TAB PO SCH ×2 (11:45→14:00)
[2022-03-05] MEDS ORDERED: Lactated Ringer's 500 ML IV SCH ×2 (13:10→14:30)
[2022-03-05] MEDS: Acetaminophen/Codeine 30-300mg Tablet PO PRN (20:35)
[2022-03-05] MEDS: Atorvastatin Calcium 20 MG TAB PO SCH (20:36)
[2022-03-06] MEDS: Acetaminophen/Codeine 30-300mg Tablet PO PRN ×2 (02:57→15:59)
[2022-03-06] MEDS: Arformoterol 15 MCG/2 ML NEB NEB SCH (07:11)
[2022-03-06 07:24] LABS: ALT (SGPT) 11 U/L (8-55); AST (SGOT) 16 U/L (5-34); Albumin 3.1 g/dL (3.5-5.0); Alkaline Phosphatase 94 U/L (40-110); Anion Gap 12 mmol/L (10-20); BUN (Urea Nitrogen) 25 mg/dL (9.8-20.1); Bilirubin, Total 0.8 mg/dL (0.2-1.2); Calc. Creatinine Clearance 184 mL/min (70-130); Carbon Dioxide 34 mmol/L (22-29); Chloride 97 mmol/L (98-107); Estimated GFR 64; Glucose 156 mg/dL (70-105); Potassium 4.3 mmol/L (3.5-5.1); Protein, Total 6.1 g/dL (6.0-8.3); Sodium 139 mmol/L (136-145)
[2022-03-06] MEDS: Loratadine 10 MG TAB PO SCH (08:20)
[2022-03-06] MEDS: Ferrous Sulfate 325 MG TAB PO SCH ×2 (08:20→15:59)
[2022-03-06] MEDS: Enoxaparin Sodium 40 MG/0.4 ML SYRINGE SC SCH (08:20)
[2022-03-06] MEDS: Aripiprazole 10 MG TAB PO SCH (08:20)
[2022-03-06] MEDS: Aspirin 81 mg Enteric Coated Tablet PO SCH (08:21)
[2022-03-06] MEDS: HumaLOG 300 UNITS/3 ML VIAL SC SCH ×3 (08:23→17:48)
[2022-03-06] MEDS: Insulin Glargine 30 UNITS/0.3 ML VIAL SC SCH (08:25)
[2022-03-06] MEDS ORDERED: Furosemide 40 MG TAB PO SCH (11:30)
[2022-03-06] MEDS ORDERED: Gabapentin 300 MG CAP PO SCH ×2 (15:30→21:00)
[2022-03-06 16:10] VITALS: BP 141/66; TEMP 97.7
[2022-03-07] MEDS ORDERED: Furosemide 40 MG TAB PO SCH (07:30)
== END 2022-03-06 19:00 | DRG 291 ==
LOC: ERS 11:35 → 2NO 15:32 → OBSVTOIN 03-01 09:44
PROVIDERS: ADMIT Student in an Organized Health Care Education/Training Program; ATTEND Student in an Organized Health Care Education/Training Program
DX: I11.0 Hypertensive heart disease with heart failure (principal); I50.33 Acute on chronic diastolic (congestive) heart failure; E66.2 Morbid (severe) obesity with alveolar hypoventilation; J96.10 Chronic respiratory failure, unspecified whether with hypoxia or hypercapnia; Z68.44 Body mass index [BMI] 60.0-69.9, adult; Z20.822 Contact with and (suspected) exposure to COVID-19; E78.5 Hyperlipidemia, unspecified; F32.A Depression, unspecified; I27.20 Pulmonary hypertension, unspecified; I48.91 Unspecified atrial fibrillation; R00.1 Bradycardia, unspecified; G25.81 Restless legs syndrome; Z88.1 Allergy status to other antibiotic agents; Z88.2 Allergy status to sulfonamides; Z79.899 Other long term (current) drug therapy; Z79.51 Long term (current) use of inhaled steroids; Z79.82 Long term (current) use of aspirin; Z79.4 Long term (current) use of insulin; Z90.49 Acquired absence of other specified parts of digestive tract; Z88.8 Allergy status to other drugs, medicaments and biological substances
CPT/HCPCS: 36415; 36416; 51702; 71045; 80053; 81003; 81015; 83605; 83735; 83880; 84145; 84484; 85025; 87040; 87086; 93005; 94640; 94660; 96365; 96372; 96374; 96375; 96376; 97139; G0378; J0696; J1650; J1815; J1940; J3490; J7120; U0003; U0005

== ENCOUNTER 2022-04-27 12:16 | Inpatient (IN) | payer OTHER ==
[2022-04-27 13:07] LABS: #Eosinphils 0.1 thou/uL (0.0-0.7); #Lymphocytes 0.7 thou/uL (1.20-3.40); #Monocytes 0.5 thou/uL (0.11-0.59); %Basophils 0.2 % (0.0-1.0); %Eosinophils 1.9 % (0.0-10.0); %Lymphocytes 13.4 % (21.0-51.0); %Monocytes 8.9 % (0.0-10.0); %Neutrophils 75.7 % (42.0-75.0); Hemoglobin 10.1 g/dL (12.0-16.0); Mean Corpuscular HGB CONC 30.2 g/dL (32.0-36.0); Mean Corpuscular Hemoglobin 29.3 pg (27.0-31.0); Mean Corpuscular Volume 97.3 fl (78.0-98.0); Mean Platelet Volume 8.4 fL (7.4-10.4); Platelet Count 149 thou/uL (130-400); RBC Distribution Width 12.8 % (11.5-14.5); Red Blood Cell (RBC) Count 3.44 mill/uL (4.20-5.40); White Blood Cell (WBC) Count 5.3 thou/uL (4.8-10.8)
[2022-04-27 13:23] LABS: ALT (SGPT) 11 U/L (8-55); AST (SGOT) 17 U/L (5-34); Alkaline Phosphatase 90 U/L (40-110); Anion Gap 12 mmol/L (10-20); BUN (Urea Nitrogen) 22 mg/dL (9.8-20.1); Bilirubin, Total 1.5 mg/dL (0.2-1.2); Calc. Creatinine Clearance 0 mL/min (70-130); Calcium 9.5 mg/dL (7.8-10.44); Carbon Dioxide 34 mmol/L (22-29); Chloride 99 mmol/L (98-107); Estimated GFR 77; Globulin 3.2 g/dL (2.4-3.5); Glucose 101 mg/dL (70-105); Potassium 4.5 mmol/L (3.5-5.1); Protein, Total 7.2 g/dL (6.0-8.3); Sodium 140 mmol/L (136-145)
[2022-04-27 13:40] LABS: Calcium, Ionized (venous) 1.13 mmol/L (1.16-1.32); Chloride (VBG) 98 mmol/L (98-106); Hemoglobin (Hb) 11.7 g/dL (11.7-16.0); Potassium (VBG) 4.46 mmol/L (3.70-5.30); Sodium 139.6 mmol/L (133-146); pH (venous) 7.41 (7.32-7.43)
[2022-04-27 13:41] LABS: Actual Bicarbonate (HCO3v) 35 mEq/L (22-28)
[2022-04-27] MEDS ORDERED: Acetaminophen 500 MG TAB ONE (13:49)
[2022-04-27 14:14] LABS: Bacteria/HPF None Seen HPF (None Seen); Bilirubin Negative (Negative); Blood, Urine 3+ (Negative); Clarity Clear (Clear); Glucose, Urine (Dipstick) Normal (Negative); Ketone, Urine Negative (Negative); Leukocyte Negative Leu/uL (Negative); Nitrite Negative (Negative); Protein, Urine (Dipstick) 10 mg/dL (Neg-Trace); RBC/HPF 0-3 HPF (0-3); Specific Gravity, Urine 1.014 (1.002-1.036); Squamous Epithelial 0-3 HPF (0-3); Urobilinogen Normal mg/dL (Less than 2); WBC/HPF 0-3 HPF (0-3); pH, Urine 8.5 (5.0-9.0)
[2022-04-27 14:28] LABS: SARS-CoV-2 NAA Rapid Test Not Detected (NotDetected)
[2022-04-27] MEDS ORDERED: Furosemide 40 MG/4 ML VIAL ONE (14:56)
[2022-04-27] MEDS ORDERED: Acetaminophen 325 MG TAB PO PRN (15:44)
[2022-04-27] MEDS ORDERED: Dextrose 50% Abboject 50 ML SYRINGE SLOW IVP PRN (15:56)
[2022-04-27] MEDS ORDERED: HumaLOG 300 UNITS/3 ML VIAL SC PRN (15:56)
[2022-04-27] MEDS ORDERED: Dextrose 5% in Water 1,000 ML IV PRN (15:56)
[2022-04-27 17:06] VITALS: BMI 66.6
[2022-04-27] MEDS ORDERED: Albuterol Sulfate 2.5 mg/3 ml Neb NEB PRN (17:15)
[2022-04-27] MEDS ORDERED: Docusate 100 MG CAP PO PRN (17:15)
[2022-04-27] MEDS ORDERED: Diclofenac 1% 100 GM GEL TP PRN (17:29)
[2022-04-27] MEDS ORDERED: Zinc Oxide 20% Oint 30 GM TUBE TOP PRN (17:35)
[2022-04-27 18:09] LABS: Hemoglobin A1c 5.7 % (4.0-6.0)
[2022-04-27] MEDS: Arformoterol 15 MCG/2 ML NEB NEB SCH (19:30)
[2022-04-27] MEDS: Gabapentin 300 MG CAP PO SCH (20:20)
[2022-04-27] MEDS: Metoprolol Tartrate 25 MG TAB PO SCH (20:20)
[2022-04-27] MEDS: Atorvastatin Calcium 20 MG TAB PO SCH (20:20)
[2022-04-27] MEDS: Acetaminophen/Codeine 30-300mg Tablet PO PRN (20:21)
[2022-04-27] MEDS ORDERED: Gabapentin 300 MG CAP PO SCH (21:00)
[2022-04-27] MEDS ORDERED: Furosemide 20 MG/2 ML VIAL SLOW IVP SCH (22:00)
[2022-04-28 04:49] LABS: #Eosinphils 0.1 thou/uL (0.0-0.7); #Lymphocytes 0.9 thou/uL (1.20-3.40); #Monocytes 0.5 thou/uL (0.11-0.59); #Neutrophils 2.9 thou/uL (1.40-6.50); %Basophils 0.7 % (0.0-1.0); %Eosinophils 2.9 % (0.0-10.0); %Lymphocytes 19.1 % (21.0-51.0); %Neutrophils 65.3 % (42.0-75.0); Hemoglobin 10.2 g/dL (12.0-16.0); Mean Corpuscular HGB CONC 31.4 g/dL (32.0-36.0); Mean Corpuscular Hemoglobin 30.7 pg (27.0-31.0); Mean Corpuscular Volume 97.8 fl (78.0-98.0); Mean Platelet Volume 8.6 fL (7.4-10.4); Platelet Count 149 thou/uL (130-400); RBC Distribution Width 12.9 % (11.5-14.5); Red Blood Cell (RBC) Count 3.34 mill/uL (4.20-5.40); White Blood Cell (WBC) Count 4.5 thou/uL (4.8-10.8)
[2022-04-28 05:15] LABS: Anion Gap 10 mmol/L (10-20); BUN (Urea Nitrogen) 24 mg/dL (9.8-20.1); Calc. Creatinine Clearance 207 mL/min (70-130); Calcium 9.6 mg/dL (7.8-10.44); Carbon Dioxide 37 mmol/L (22-29); Chloride 96 mmol/L (98-107); Estimated GFR 75; Glucose 100 mg/dL (70-105); Potassium 4.1 mmol/L (3.5-5.1); Sodium 139 mmol/L (136-145)
[2022-04-28] MEDS ORDERED: Furosemide 20 MG/2 ML VIAL SLOW IVP SCH (07:00)
[2022-04-28] MEDS: Arformoterol 15 MCG/2 ML NEB NEB SCH ×2 (07:03→19:19)
[2022-04-28] MEDS ORDERED: tiZANidine HCl 4 MG TAB PO SCH (08:15)
[2022-04-28] MEDS: Metoprolol Tartrate 25 MG TAB PO SCH ×2 (08:50→21:08)
[2022-04-28] MEDS: Aripiprazole 10 MG TAB PO SCH (08:50)
[2022-04-28] MEDS: Aspirin 81 mg Enteric Coated Tablet PO SCH (08:50)
[2022-04-28] MEDS: Ascorbic Acid 500 mg Chewable Tablet PO SCH (08:51)
[2022-04-28] MEDS: Gabapentin 300 MG CAP PO SCH ×3 (08:51→21:07)
[2022-04-28] MEDS: Furosemide 40 MG TAB PO SCH ×2 (08:51→21:07)
[2022-04-28] MEDS: Enoxaparin Sodium 40 MG/0.4 ML SYRINGE SC SCH (08:51)
[2022-04-28] MEDS: Loratadine 10 MG TAB PO SCH (08:51)
[2022-04-28] MEDS: Insulin Glargine 30 UNITS/0.3 ML VIAL SC SCH (08:52)
[2022-04-28] MEDS: Fluticasone Propionate Nasal Spray 16 gm Bottle NASAL SCH (08:52)
[2022-04-28] MEDS: HumaLOG 300 UNITS/3 ML VIAL SC SCH ×3 (08:52→17:19)
[2022-04-28] MEDS ORDERED: FLU VACC QS2022-23(6MOS UP)/PF 60 MCG/0.5 ML SYRINGE IM ONE (09:00)
[2022-04-28] MEDS ORDERED: Polyethylene Glycol 3350 17 GM Packet PO SCH (20:45)
[2022-04-28] MEDS: Atorvastatin Calcium 20 MG TAB PO SCH (21:07)
[2022-04-28] MEDS ORDERED: Fleet Enema 133 ML BOT PR SCH (23:00)
[2022-04-29] MEDS: Acetaminophen/Codeine 30-300mg Tablet PO PRN ×3 (01:01→20:33)
[2022-04-29 05:03] LABS: Anion Gap 12 mmol/L (10-20); BUN (Urea Nitrogen) 24 mg/dL (9.8-20.1); Calc. Creatinine Clearance 210 mL/min (70-130); Carbon Dioxide 32 mmol/L (22-29); Chloride 99 mmol/L (98-107); Estimated GFR 76; Glucose 146 mg/dL (70-105); Potassium 4.2 mmol/L (3.5-5.1); Sodium 139 mmol/L (136-145)
[2022-04-29 05:15] LABS: #Eosinphils 0.1 thou/uL (0.0-0.7); #Lymphocytes 0.8 thou/uL (1.20-3.40); #Monocytes 0.5 thou/uL (0.11-0.59); #Neutrophils 3.8 thou/uL (1.40-6.50); %Basophils 0.2 % (0.0-1.0); %Eosinophils 2.4 % (0.0-10.0); %Lymphocytes 14.8 % (21.0-51.0); %Monocytes 9.5 % (0.0-10.0); %Neutrophils 73.1 % (42.0-75.0); Hemoglobin 9.2 g/dL (12.0-16.0); Mean Corpuscular HGB CONC 28.4 g/dL (32.0-36.0); Mean Corpuscular Hemoglobin 27.5 pg (27.0-31.0); Mean Platelet Volume 9.4 fL (7.4-10.4); Platelet Count 129 thou/uL (130-400); RBC Distribution Width 12.8 % (11.5-14.5); Red Blood Cell (RBC) Count 3.33 mill/uL (4.20-5.40); White Blood Cell (WBC) Count 5.1 thou/uL (4.8-10.8)
[2022-04-29] MEDS: Ascorbic Acid 500 mg Chewable Tablet PO SCH (08:01)
[2022-04-29] MEDS: Gabapentin 300 MG CAP PO SCH ×3 (08:01→20:33)
[2022-04-29] MEDS: Polyethylene Glycol 3350 17 GM Packet PO SCH (08:01)
[2022-04-29] MEDS: Aspirin 81 mg Enteric Coated Tablet PO SCH (08:01)
[2022-04-29] MEDS: Loratadine 10 MG TAB PO SCH (08:01)
[2022-04-29] MEDS: Aripiprazole 10 MG TAB PO SCH (08:02)
[2022-04-29] MEDS: Furosemide 40 MG TAB PO SCH ×2 (08:02→20:33)
[2022-04-29] MEDS: Metoprolol Tartrate 25 MG TAB PO SCH ×2 (08:02→20:33)
[2022-04-29] MEDS: HumaLOG 300 UNITS/3 ML VIAL SC SCH ×3 (08:03→16:08)
[2022-04-29] MEDS: Fluticasone Propionate Nasal Spray 16 gm Bottle NASAL SCH (08:03)
[2022-04-29] MEDS: Enoxaparin Sodium 40 MG/0.4 ML SYRINGE SC SCH (08:03)
[2022-04-29] MEDS: Insulin Glargine 30 UNITS/0.3 ML VIAL SC SCH (08:28)
[2022-04-29] MEDS ORDERED: Simethicone Chewable 80 MG TAB PO PRN (11:54)
[2022-04-29] MEDS: Arformoterol 15 MCG/2 ML NEB NEB SCH ×2 (12:24→19:13)
[2022-04-29] MEDS: Atorvastatin Calcium 20 MG TAB PO SCH (20:32)
[2022-04-30 04:38] LABS: #Eosinphils 0.2 thou/uL (0.0-0.7); #Lymphocytes 0.9 thou/uL (1.20-3.40); #Monocytes 0.4 thou/uL (0.11-0.59); #Neutrophils 2.3 thou/uL (1.40-6.50); %Eosinophils 4.1 % (0.0-10.0); %Lymphocytes 23.1 % (21.0-51.0); %Monocytes 11.6 % (0.0-10.0); %Neutrophils 61.2 % (42.0-75.0); Hemoglobin 9.5 g/dL (12.0-16.0); Mean Corpuscular HGB CONC 29.4 g/dL (32.0-36.0); Mean Corpuscular Hemoglobin 28.8 pg (27.0-31.0); Mean Corpuscular Volume 97.7 fl (78.0-98.0); Mean Platelet Volume 9.2 fL (7.4-10.4); Platelet Count 127 thou/uL (130-400); RBC Distribution Width 12.7 % (11.5-14.5); White Blood Cell (WBC) Count 3.7 thou/uL (4.8-10.8)
[2022-04-30 04:43] LABS: Anion Gap 13 mmol/L (10-20); BUN (Urea Nitrogen) 26 mg/dL (9.8-20.1); Calc. Creatinine Clearance 182 mL/min (70-130); Carbon Dioxide 32 mmol/L (22-29); Chloride 99 mmol/L (98-107); Potassium 4.6 mmol/L (3.5-5.1); Sodium 139 mmol/L (136-145)
[2022-04-30 04:44] LABS: Calcium 8.4 mg/dL (7.8-10.44); Estimated GFR 64; Glucose 148 mg/dL (70-105)
[2022-04-30] MEDS: Arformoterol 15 MCG/2 ML NEB NEB SCH ×2 (06:51→19:14)
[2022-04-30] MEDS: Polyethylene Glycol 3350 17 GM Packet PO SCH (09:11)
[2022-04-30] MEDS: Aripiprazole 10 MG TAB PO SCH (09:11)
[2022-04-30] MEDS: tiZANidine HCl 4 MG TAB PO SCH ×3 (09:11→22:05)
[2022-04-30] MEDS: Aspirin 81 mg Enteric Coated Tablet PO SCH (09:11)
[2022-04-30] MEDS: Loratadine 10 MG TAB PO SCH (09:12)
[2022-04-30] MEDS: Furosemide 40 MG TAB PO SCH ×2 (09:12→22:09)
[2022-04-30] MEDS: Metoprolol Tartrate 25 MG TAB PO SCH ×2 (09:12→22:08)
[2022-04-30] MEDS: Ascorbic Acid 500 mg Chewable Tablet PO SCH (09:12)
[2022-04-30] MEDS: Gabapentin 300 MG CAP PO SCH ×3 (09:12→22:08)
[2022-04-30] MEDS: Simethicone Chewable 80 MG TAB PO SCH ×3 (09:13→22:07)
[2022-04-30] MEDS: Insulin Glargine 30 UNITS/0.3 ML VIAL SC SCH (09:13)
[2022-04-30] MEDS: HumaLOG 300 UNITS/3 ML VIAL SC SCH ×3 (09:13→16:00)
[2022-04-30] MEDS: Enoxaparin Sodium 40 MG/0.4 ML SYRINGE SC SCH (09:18)
[2022-04-30] MEDS: Fluticasone Propionate Nasal Spray 16 gm Bottle NASAL SCH (09:18)
[2022-04-30] MEDS: Acetaminophen/Codeine 30-300mg Tablet PO PRN (14:15)
[2022-04-30] MEDS: Atorvastatin Calcium 20 MG TAB PO SCH (22:07)
[2022-05-01] LABS: Bilirubin Negative (Negative); Blood, Urine Negative (Negative); Clarity Clear (Clear); Glucose, Urine (Dipstick) Normal (Negative); Ketone, Urine Negative (Negative); Leukocyte Negative Leu/uL (Negative); Nitrite Negative (Negative); Protein, Urine (Dipstick) Negative (Neg-Trace); RBC/HPF None Seen HPF (0-3); Specific Gravity, Urine 1.018 (1.002-1.036); Squamous Epithelial 0-3 HPF (0-3); WBC/HPF 0-3 HPF (0-3); pH, Urine 5.5 (5.0-9.0)
[2022-05-01 00:06] LABS: Bacteria/HPF 1+ HPF (None Seen)
[2022-05-01 00:07] LABS: Urine Culture Reflex Yes Yes
[2022-05-01 04:36] LABS: #Eosinphils 0.2 thou/uL (0.0-0.7); #Lymphocytes 0.9 thou/uL (1.20-3.40); #Monocytes 0.4 thou/uL (0.11-0.59); #Neutrophils 2.5 thou/uL (1.40-6.50); %Basophils 0.7 % (0.0-1.0); %Eosinophils 4.1 % (0.0-10.0); %Lymphocytes 22.7 % (21.0-51.0); %Monocytes 10.6 % (0.0-10.0); %Neutrophils 61.9 % (42.0-75.0); Hemoglobin 9.1 g/dL (12.0-16.0); Mean Corpuscular HGB CONC 30.7 g/dL (32.0-36.0); Mean Corpuscular Hemoglobin 30.1 pg (27.0-31.0); Mean Corpuscular Volume 98.1 fl (78.0-98.0); Mean Platelet Volume 9.2 fL (7.4-10.4); Platelet Count 123 thou/uL (130-400); RBC Distribution Width 12.7 % (11.5-14.5); Red Blood Cell (RBC) Count 3.02 mill/uL (4.20-5.40); White Blood Cell (WBC) Count 4.1 thou/uL (4.8-10.8)
[2022-05-01 05:13] LABS: Anion Gap 14 mmol/L (10-20); BUN (Urea Nitrogen) 30 mg/dL (9.8-20.1); Calc. Creatinine Clearance 155 mL/min (70-130); Calcium 8.5 mg/dL (7.8-10.44); Carbon Dioxide 33 mmol/L (22-29); Chloride 96 mmol/L (98-107); Estimated GFR 53; Glucose 125 mg/dL (70-105); Potassium 4.5 mmol/L (3.5-5.1); Sodium 138 mmol/L (136-145)
[2022-05-01] MEDS: Arformoterol 15 MCG/2 ML NEB NEB SCH ×2 (07:14→19:18)
[2022-05-01] MEDS: Insulin Glargine 30 UNITS/0.3 ML VIAL SC SCH (09:01)
[2022-05-01] MEDS: HumaLOG 300 UNITS/3 ML VIAL SC SCH ×3 (09:01→16:36)
[2022-05-01] MEDS: Enoxaparin Sodium 40 MG/0.4 ML SYRINGE SC SCH (09:01)
[2022-05-01] MEDS: Polyethylene Glycol 3350 17 GM Packet PO SCH (09:01)
[2022-05-01] MEDS: Ascorbic Acid 500 mg Chewable Tablet PO SCH (09:02)
[2022-05-01] MEDS: Aripiprazole 10 MG TAB PO SCH (09:02)
[2022-05-01] MEDS: Loratadine 10 MG TAB PO SCH (09:02)
[2022-05-01] MEDS: Aspirin 81 mg Enteric Coated Tablet PO SCH (09:02)
[2022-05-01] MEDS: Metoprolol Tartrate 25 MG TAB PO SCH ×2 (09:02→20:06)
[2022-05-01] MEDS: Gabapentin 300 MG CAP PO SCH ×3 (09:02→20:06)
[2022-05-01] MEDS: Furosemide 40 MG TAB PO SCH ×2 (09:02→20:06)
[2022-05-01] MEDS: Simethicone Chewable 80 MG TAB PO SCH ×3 (09:02→20:06)
[2022-05-01] MEDS: Fluticasone Propionate Nasal Spray 16 gm Bottle NASAL SCH (09:03)
[2022-05-01] MEDS: tiZANidine HCl 4 MG TAB PO PRN ×2 (11:23→16:39)
[2022-05-01 17:14] VITALS: BP 106/53; TEMP 98.1
[2022-05-01] MEDS: Atorvastatin Calcium 20 MG TAB PO SCH (20:06)
[2022-05-09] MEDS ORDERED: Ergocalciferol 1.25 MG(50,000 UNITS) CAP PO SCH (09:00)
== END 2022-05-01 21:35 | DRG 291 ==
LOC: ERS 12:16 → NEURO 14:56 → 2NO 18:33
PROVIDERS: ADMIT Family Medicine; ATTEND Family Medicine
PROC: 5A09357 Assistance with Respiratory Ventilation, Less than 24 Consecutive Hours, Continuous Positive Airway Pressure (ICD-10-PCS; principal; 2022-04-27)
DX: I11.0 Hypertensive heart disease with heart failure (principal); I50.33 Acute on chronic diastolic (congestive) heart failure; E66.2 Morbid (severe) obesity with alveolar hypoventilation; Z68.44 Body mass index [BMI] 60.0-69.9, adult; J96.11 Chronic respiratory failure with hypoxia; Z20.822 Contact with and (suspected) exposure to COVID-19; E11.9 Type 2 diabetes mellitus without complications; I48.91 Unspecified atrial fibrillation; F32.9 Major depressive disorder, single episode, unspecified; B34.9 Viral infection, unspecified; I45.10 Unspecified right bundle-branch block; R31.9 Hematuria, unspecified; Z28.21 Immunization not carried out because of patient refusal; Z88.1 Allergy status to other antibiotic agents; Z88.2 Allergy status to sulfonamides; Z88.8 Allergy status to other drugs, medicaments and biological substances; Z79.899 Other long term (current) drug therapy; Z79.51 Long term (current) use of inhaled steroids; Z79.82 Long term (current) use of aspirin; Z79.4 Long term (current) use of insulin; Z99.89 Dependence on other enabling machines and devices; Z82.41 Family history of sudden cardiac death; Z98.890 Other specified postprocedural states; I27.29 Other secondary pulmonary hypertension
CPT/HCPCS: 36415; 36416; 71045; 80048; 80053; 81001; 81003; 81015; 82805; 83036; 83880; 84484; 85025; 87086; 87633; 93005; 94640; 94660; 96374; J1650; J1815; J1940

== ENCOUNTER 2022-08-31 21:25 | Emergency (ER) | payer OTHER ==
[2022-08-31 23:24] LABS: #Eosinphils 0.2 thou/uL (0.0-0.7); #Lymphocytes 0.7 thou/uL (1.20-3.40); #Monocytes 0.3 thou/uL (0.11-0.59); #Neutrophils 9.6 thou/uL (1.40-6.50); %Basophils 0.1 % (0.0-1.0); %Eosinophils 1.7 % (0.0-10.0); %Lymphocytes 6.3 % (21.0-51.0); %Monocytes 2.9 % (0.0-10.0); %Neutrophils 89.1 % (42.0-75.0); Hemoglobin 7.4 g/dL (12.0-16.0); Mean Corpuscular HGB CONC 30.8 g/dL (32.0-36.0); Mean Corpuscular Hemoglobin 29.2 pg (27.0-31.0); Mean Corpuscular Volume 95.1 fl (78.0-98.0); Mean Platelet Volume 8.1 fL (7.4-10.4); Platelet Count 155 10x3/uL (130-400); RBC Distribution Width 15.1 % (11.5-14.5); Red Blood Cell (RBC) Count 2.54 mill/uL (4.20-5.40); White Blood Cell (WBC) Count 10.7 10x3/uL (4.8-10.8)
[2022-08-31 23:30] LABS: Bilirubin Negative (Negative); Blood, Urine Negative (Negative); Clarity Turbid (Clear); Glucose, Urine (Dipstick) Normal (Negative); Ketone, Urine Negative (Negative); Leukocyte 500 Leu/uL (Negative); Nitrite Negative (Negative); Protein, Urine (Dipstick) 20 mg/dL (Neg-Trace); RBC/HPF 0-3 HPF (0-3); Specific Gravity, Urine 1.015 (1.002-1.036); Squamous Epithelial 21-50 HPF (0-3); WBC/HPF Greater than 50 HPF (0-3); pH, Urine 7.5 (5.0-9.0)
[2022-08-31 23:31] LABS: Bacteria/HPF 1+ HPF (None Seen)
[2022-08-31 23:36] LABS: ALT (SGPT) 11 U/L (8-55); AST (SGOT) 12 U/L (5-34); Albumin 3.2 g/dL (3.4-4.8); Alkaline Phosphatase 76 U/L (40-110); Anion Gap 13 mmol/L (10-20); BUN (Urea Nitrogen) 34 mg/dL (9.8-20.1); Bilirubin, Total 1.4 mg/dL (0.2-1.2); Calc. Creatinine Clearance 0 mL/min (70-130); Calcium 8.7 mg/dL (7.8-10.44); Carbon Dioxide 34 mmol/L (23-31); Chloride 97 mmol/L (98-107); Estimated GFR 73; Globulin 2.5 g/dL (2.4-3.5); Glucose 157 mg/dL (80-115); Potassium 4.9 mmol/L (3.5-5.1); Protein, Total 5.7 g/dL (5.8-8.1); Sodium 139 mmol/L (136-145)
== END 2022-09-01 01:30 | disposition home or self-care (01) ==
LOC: ERS 21:25
DX: N39.0 Urinary tract infection, site not specified (principal); R06.02 Shortness of breath; E11.9 Type 2 diabetes mellitus without complications; E66.01 Morbid (severe) obesity due to excess calories; I48.91 Unspecified atrial fibrillation; J44.9 Chronic obstructive pulmonary disease, unspecified; Z79.4 Long term (current) use of insulin; Z79.01 Long term (current) use of anticoagulants; Z79.82 Long term (current) use of aspirin; Z79.899 Other long term (current) drug therapy
CPT/HCPCS: 36415; 51702; 71045; 80053; 81003; 81015; 84484; 85025; 87086; 93005

== ENCOUNTER 2022-09-10 10:01 | Inpatient (IN) | payer OTHER ==
[2022-09-10] MEDS ORDERED: DOPamine 400 MG/D5W 250 ML 250 ML ONE (10:18)
[2022-09-10 10:44] LABS: Actual Bicarbonate (HCO3v) 32 mEq/L (22-28); Base Excess 2.5 mEq/L (-2.0 to +3.0); Calcium, Ionized (venous) 1.06 mmol/L (1.16-1.32); Chloride (VBG) 95 mmol/L (98-106); Hemoglobin (Hb) 9.3 g/dL (11.7-16.0); Potassium (VBG) 5.41 mmol/L (3.70-5.30); Sodium 130.4 mmol/L (133-146); pH (venous) 7.21 (7.32-7.43)
[2022-09-10 10:46] LABS: Analyzer IN Cardio ER
[2022-09-10 11:04] LABS: Bilirubin Negative (Negative); Blood, Urine 1+ (Negative); Calcium Oxalate Crystals 3+ HPF (None Seen); Clarity Turbid (Clear); Glucose, Urine (Dipstick) Normal (Negative); Ketone, Urine Negative (Negative); Leukocyte 500 Leu/uL (Negative); Nitrite Negative (Negative); Protein, Urine (Dipstick) 70 mg/dL (Neg-Trace); Specific Gravity, Urine 1.023 (1.002-1.036); Urobilinogen 3 mg/dL (Less than 2); WBC/HPF 21-50 HPF (0-3)
[2022-09-10 11:12] LABS: #Eosinphils 0.3 thou/uL (0.0-0.7); #Lymphocytes 1.4 thou/uL (1.20-3.40); #Monocytes 0.6 thou/uL (0.11-0.59); #Neutrophils 6.1 thou/uL (1.40-6.50); %Basophils 0.3 % (0.0-1.0); %Eosinophils 3.2 % (0.0-10.0); %Monocytes 7.5 % (0.0-10.0); Hemoglobin 9.1 g/dL (12.0-16.0); Mean Corpuscular HGB CONC 29.3 g/dL (32.0-36.0); Mean Corpuscular Hemoglobin 28.8 pg (27.0-31.0); Mean Corpuscular Volume 98.2 fl (78.0-98.0); Mean Platelet Volume 8.6 fL (7.4-10.4); Platelet Count 197 10x3/uL (130-400); RBC Distribution Width 15.2 % (11.5-14.5); Red Blood Cell (RBC) Count 3.15 mill/uL (4.20-5.40); White Blood Cell (WBC) Count 8.5 10x3/uL (4.8-10.8)
[2022-09-10 11:20] LABS: ALT (SGPT) 30 U/L (8-55); AST (SGOT) 57 U/L (5-34); Albumin 3.3 g/dL (3.4-4.8); Alkaline Phosphatase 114 U/L (40-110); Anion Gap 18 mmol/L (10-20); BUN (Urea Nitrogen) 50 mg/dL (9.8-20.1); Bilirubin, Total 1.3 mg/dL (0.2-1.2); CK (CPK) 29 U/L (29-168); Calc. Creatinine Clearance 0 mL/min (70-130); Calcium 8.2 mg/dL (7.8-10.44); Carbon Dioxide 24 mmol/L (23-31); Chloride 97 mmol/L (98-107); Estimated GFR 17; Glucose 143 mg/dL (80-115); Lipase 18 U/L (8-78); Potassium 5.6 mmol/L (3.5-5.1); Protein, Total 6.3 g/dL (5.8-8.1); Sodium 133 mmol/L (136-145)
[2022-09-10 11:28] LABS: Bacteria/HPF 2+ HPF (None Seen); Transitional Epithelial 0-3 HPF (None Seen)
[2022-09-10 11:36] LABS: CKMB 1.2 ng/mL (0-6.6)
[2022-09-10 11:39] LABS: Hypochromia SLIGHT = 6-15 cells (100X) (0-5/hpf); MDiff Complete? YES; Platelet Morphology Comment Appears Adequate; Polychromasia SLIGHT = 2-3 cells (100X) (0-2/hpf)
[2022-09-10] MEDS ORDERED: DOBUTamine 500 mg/250 ml 250 ML ONE (12:42)
[2022-09-10] MEDS ORDERED: Acetaminophen 325 MG TAB PO PRN (13:00)
[2022-09-10] MEDS ORDERED: Nystatin Powder 15 GM BOT TOP PRN (13:17)
[2022-09-10] MEDS ORDERED: Dextrose 50% Abboject 50 ML SYRINGE SLOW IVP PRN (13:20)
[2022-09-10] MEDS ORDERED: HumaLOG 300 UNITS/3 ML VIAL SC PRN ×2 (13:20)
[2022-09-10] MEDS ORDERED: Dextrose 5% in Water 1,000 ML IV PRN (13:20)
[2022-09-10 13:41] LABS: Legionella Urinary Ag Negative (Negative); Strep pneumo Urine Ag NEGATIVE (NEGATIVE)
[2022-09-10] MEDS ORDERED: Nitrofurantoin Monohyd/M-Cryst 100 MG CAP PO SCH (13:45)
[2022-09-10 14:08] LABS: Actual Bicarbonate (HCO3a) 30.2 mEq/L (22-28); Analyzer IN Cardio ER; Base Excess (BEa) 2.5 mEq/L (-2.0 to +3.0); Calcium, Ionized (arterial) 1.07 mmol/L (1.12-1.30); Carboxyhemoglobin (COHb) 0.8 gm% (0.0-3.0); Hemoglobin (Hb) 9.9 g/dL (12.0-16.0); O2 Tension (PaO2), arterial 66.4 mmHg (> 80.0); Potassium - ABG Lab 5.09 mmol/L (3.70-5.30); pH, Arterial 7.29 (7.35-7.45)
[2022-09-10 14:12] LABS: ALV-art Gradient 173.575 mmHg (0-20); CO2 Tension 64.7 mmHg (35.0-45.0); Puncture Site RBA
[2022-09-10 14:55] LABS: Lactic Acid 1.2 mmol/L (0.5-2.2)
[2022-09-10 15:03] LABS: Magnesium 1.9 mg/dL (1.6-2.6)
[2022-09-10 15:06] LABS: Troponin I 0.035 ng/mL (< 0.028)
[2022-09-10] MEDS: Heparin 5,000 UNITS/ML VIAL SC SCH ×2 (15:55→20:37)
[2022-09-10] MEDS ORDERED: Pantoprazole 40 MG VIAL IVP SCH (16:15)
[2022-09-10] MEDS ORDERED: DOBUTamine 500 mg/250 ml 250 ML IVPB SCH (16:30)
[2022-09-10] MEDS ORDERED: Docusate 100 MG CAP PO PRN (16:46)
[2022-09-10] MEDS ORDERED: Magnesium 2 GM/50 ML(in water) 2 GM in Premix Bag 1 BAG IVPB SCH (17:15)
[2022-09-10] MEDS ORDERED: Diclofenac 1% 100 GM GEL TP PRN (17:53)
[2022-09-10] MEDS ORDERED: Calcium Chloride 13.6 MEQ in Sodium Chloride 0.9% 100 ML IVPB SCH (18:00)
[2022-09-10 18:34] LABS: SARS-CoV-2 NAA Rapid Test Not Detected (NotDetected)
[2022-09-10 18:53] VITALS: BMI 88.7
[2022-09-10] MEDS: Arformoterol 15 MCG/2 ML NEB NEB SCH (19:10)
[2022-09-10 19:37] LABS: Creatinine, Urine 117.11 mg/dL (47-110); Sodium, Urine Less than 20 mmol/L (Not Available)
[2022-09-10 19:37] LABS: Troponin I 0.041 ng/mL (< 0.028)
[2022-09-10] MEDS ORDERED: Vancomycin HCl 2.5 GM in Sodium Chloride 0.9% 500 ML IVPB SCH (19:45)
[2022-09-10] MEDS ORDERED: Vancomycin Dose by Levels Sliding Scale (Wt > 99) FS SCH (19:45)
[2022-09-10] MEDS ORDERED: Hydrocortisone Sod Succ/PF 100 mg/2 ml Vial IVP SCH (20:15)
[2022-09-10] MEDS: Atorvastatin Calcium 20 MG TAB PO SCH (20:30)
[2022-09-10] MEDS: Nystatin Powder 15 GM BOT TOP SCH (20:55)
[2022-09-10] MEDS ORDERED: Vancomycin 1 GM in Premix Bag 1 BAG IVPB SCH (21:00)
[2022-09-10] MEDS ORDERED: Cefepime 1 GM in Sodium Chloride 0.9% 100 ML IVPB SCH (21:00)
[2022-09-10] MEDS ORDERED: Famotidine/PF 20 mg/2ml Vial SLOW IVP SCH (21:00)
[2022-09-10] MEDS ORDERED: Gabapentin 300 MG CAP PO SCH (21:00)
[2022-09-11 04:24] LABS: #Lymphocytes 0.4 thou/uL (1.20-3.40); #Monocytes 0.2 thou/uL (0.11-0.59); #Neutrophils 6.8 thou/uL (1.40-6.50); %Eosinophils 0.2 % (0.0-10.0); %Lymphocytes 4.7 % (21.0-51.0); %Monocytes 2.7 % (0.0-10.0); %Neutrophils 92.3 % (42.0-75.0); Hemoglobin 8.3 g/dL (12.0-16.0); Mean Corpuscular HGB CONC 30.6 g/dL (32.0-36.0); Mean Corpuscular Hemoglobin 29.6 pg (27.0-31.0); Mean Corpuscular Volume 96.4 fl (78.0-98.0); Mean Platelet Volume 7.6 fL (7.4-10.4); Platelet Count 149 10x3/uL (130-400); RBC Distribution Width 15.2 % (11.5-14.5); Red Blood Cell (RBC) Count 2.79 mill/uL (4.20-5.40); White Blood Cell (WBC) Count 7.4 10x3/uL (4.8-10.8)
[2022-09-11 04:54] LABS: ALT (SGPT) 26 U/L (8-55); AST (SGOT) 35 U/L (5-34); Albumin 2.9 g/dL (3.4-4.8); Alkaline Phosphatase 100 U/L (40-110); Anion Gap 14 mmol/L (10-20); BUN (Urea Nitrogen) 51 mg/dL (9.8-20.1); Bilirubin, Total 1.9 mg/dL (0.2-1.2); Calc. Creatinine Clearance 97 mL/min (70-130); Calcium 8.7 mg/dL (7.8-10.44); Carbon Dioxide 29 mmol/L (23-31); Chloride 98 mmol/L (98-107); Estimated GFR 22; Globulin 2.8 g/dL (2.4-3.5); Glucose 144 mg/dL (80-115); Potassium 5.1 mmol/L (3.5-5.1); Protein, Total 5.7 g/dL (5.8-8.1); Sodium 136 mmol/L (136-145)
[2022-09-11] MEDS: Arformoterol 15 MCG/2 ML NEB NEB SCH ×2 (07:49→19:39)
[2022-09-11] MEDS ORDERED: Loratadine 10 MG TAB PO SCH (09:00)
[2022-09-11] MEDS ORDERED: Fluticasone Propionate Nasal Spray 16 gm Bottle NASAL SCH (09:00)
[2022-09-11] MEDS ORDERED: Sertraline 100 MG TAB PO SCH (09:00)
[2022-09-11] MEDS ORDERED: Polyethylene Glycol 3350 17 GM Packet PO SCH (09:00)
[2022-09-11] MEDS ORDERED: Pantoprazole 40 MG VIAL IVP SCH (09:00)
[2022-09-11] MEDS ORDERED: Aripiprazole 10 MG TAB PO SCH (09:00)
[2022-09-11] MEDS: Cefepime 1 GM in Sodium Chloride 0.9% 100 ML IVPB SCH ×2 (09:18→20:54)
[2022-09-11] MEDS: Heparin 5,000 UNITS/ML VIAL SC SCH (09:19)
[2022-09-11] MEDS: Nystatin Powder 15 GM BOT TOP SCH ×2 (10:13→21:00)
[2022-09-11 11:12] LABS: Iron 28 ug/dL (50-170); Iron Binding Capacity, Total 266 mcg/dL (265-497); Transferrin, Serum 213 mg/dL (173-360)
[2022-09-11] MEDS ORDERED: Rivaroxaban 15 MG TAB PO SCH (11:15)
[2022-09-11 11:37] LABS: Ferritin 305.48 ng/mL (10-291)
[2022-09-11 12:00] VITALS: BP 125/88
[2022-09-11] MEDS ORDERED: DOPamine 400 MG/D5W 250 ML 250 ML IVPB SCH (12:00)
[2022-09-11] MEDS: Furosemide 40 MG/4 ML VIAL SLOW IVP SCH ×2 (12:37→23:10)
[2022-09-11] MEDS ORDERED: Morphine 2 MG/ML VIAL SLOW IVP PRN (12:59)
[2022-09-11] MEDS ORDERED: Morphine 4 MG/ML VIAL ONE (13:02)
[2022-09-11] MEDS: Midodrine HCl 5 MG TAB PO SCH ×2 (15:00→23:10)
[2022-09-11] MEDS ORDERED: Ferrous Sulfate 325 MG TAB PO SCH ×4 (16:45→19:00)
[2022-09-11] MEDS ORDERED: Budesonide 0.5 MG/2 ML NEB NEB SCH (18:30)
[2022-09-11 19:00] LABS: Vancomycin, Random 9.4 ug/mL (See Comment)
[2022-09-11] MEDS: Ipratropium/Albuterol 3 ML NEB EZPAP SCH ×2 (19:39→22:03)
[2022-09-11] MEDS ORDERED: Vancomycin 1 GM in Premix Bag 1 BAG IVPB SCH (20:00)
[2022-09-11] MEDS: Atorvastatin Calcium 20 MG TAB PO SCH ×2 (20:30→20:54)
[2022-09-11] MEDS: Rivaroxaban 15 MG TAB PO SCH ×2 (20:31→20:54)
[2022-09-11] MEDS: Sildenafil Citrate 20 MG TAB PO SCH ×2 (20:32→20:55)
[2022-09-11 21:39] VITALS: TEMP 97.9
[2022-09-12] MEDS ORDERED: Ferrous Sulfate 325 MG TAB PO SCH (08:00)
[2022-09-12] MEDS ORDERED: Ferrex 150 Plus (iron poly cmplx) PO SCH (09:00)
[2022-09-17] MEDS ORDERED: Ergocalciferol 1.25 MG(50,000 UNITS) CAP PO SCH (09:00)
== END 2022-09-12 00:50 | disposition short-term general hospital (02) | DRG 291 ==
LOC: ERS 10:01 → ERHOLD 12:50 → CCU 14:44
PROVIDERS: ADMIT Student in an Organized Health Care Education/Training Program; ATTEND Student in an Organized Health Care Education/Training Program
PROC: 05H533Z Insertion of Infusion Device into Right Subclavian Vein, Percutaneous Approach (ICD-10-PCS; principal; 2022-09-10)
PROC: 3E033XZ Introduction of Vasopressor into Peripheral Vein, Percutaneous Approach (ICD-10-PCS; 2022-09-10)
PROC: 5A09457 Assistance with Respiratory Ventilation, 24-96 Consecutive Hours, Continuous Positive Airway Pressure (ICD-10-PCS; 2022-09-10)
PROC: 5A0935A Assistance with Respiratory Ventilation, Less than 24 Consecutive Hours, High Flow/Velocity Cannula (ICD-10-PCS; 2022-09-11)
DX: R57.0 Cardiogenic shock (principal); I50.33 Acute on chronic diastolic (congestive) heart failure; J18.9 Pneumonia, unspecified organism; S72.001A Fracture of unspecified part of neck of right femur, initial encounter for closed fracture; J96.22 Acute and chronic respiratory failure with hypercapnia; E66.2 Morbid (severe) obesity with alveolar hypoventilation; N39.0 Urinary tract infection, site not specified; N17.9 Acute kidney failure, unspecified; E87.4 Mixed disorder of acid-base balance; R18.8 Other ascites; Z68.45 Body mass index [BMI] 70 or greater, adult; Z51.5 Encounter for palliative care; E87.5 Hyperkalemia; D64.9 Anemia, unspecified; I11.0 Hypertensive heart disease with heart failure; R53.81 Other malaise; I27.81 Cor pulmonale (chronic); I48.91 Unspecified atrial fibrillation; I27.20 Pulmonary hypertension, unspecified; E78.5 Hyperlipidemia, unspecified; E11.9 Type 2 diabetes mellitus without complications; Z20.822 Contact with and (suspected) exposure to COVID-19; Z88.2 Allergy status to sulfonamides; Z79.899 Other long term (current) drug therapy; Z88.1 Allergy status to other antibiotic agents; Z88.8 Allergy status to other drugs, medicaments and biological substances; Z79.51 Long term (current) use of inhaled steroids; Z79.82 Long term (current) use of aspirin; Z79.4 Long term (current) use of insulin; Z98.890 Other specified postprocedural states; Z82.49 Family history of ischemic heart disease and other diseases of the circulatory system; Z90.49 Acquired absence of other specified parts of digestive tract; Z86.718 Personal history of other venous thrombosis and embolism
CPT/HCPCS: 36415; 36416; 36556; 36600; 51702; 71045; 72170; 76705; 80053; 80202; 81003; 81015; 82180; 82306; 82533; 82550; 82553; 82570; 82607; 82728; 82805; 83540; 83550; 83605; 83690; 83735; 83880; 84145; 84300; 84466; 84484; 85025; 85379; 85652; 86140; 86850; 86900; 86901; 87040; 87081; 87086; 87449; 87631; 87899; 93005; 93306; 93970; 94640; 94660; 94760; 96361; 96365; 96366; C9113; J0692; J1250; J1265; J1644; J1720; J1940; J2270; J2272; J3370; J3370-JW; J3475; J3490; J7030; J7620; J7626; U0002; U0003; U0005